=== PATIENT | female | born 1950 | race Caucasian/White ===

== ENCOUNTER 2017-02-06 19:57 | Emergency (ER) | payer MEDICARE, OTHER ==
[~2017-02-06] VITALS: Ht 165.1 cm; Wt 77.5 kg
[~2017-02-06 19:57] MED LIST: ALBU1.25 NEB; ALBU8.5H5 INH; ALBU8.5H8 INH; AMIT100T PO; AMIT10TA PO; BENZ-17 PO; BISA10SU2 PR; DICY10CA53 PO; DICY20TA3 PO; DOCU100C33 PO; DULO60CA7 PO; ESOM20CA PO; ESOM40CA PO; ESTR0.6246 PO; ESTR30CR VG; FENO48TA5 PO; FENT1PAT76 TP; FLUT1DIS IH; FURO20TA3 PO; FURO80TA3 PO; GABA-827 PO; GABA100C PO; HYDR-3241 PO; HYDR-3245 PO; LACT10SO28 PO; LEVO500T47 PO; LIDO5CRE19 SC; LIDO5JEL9 MM; LIPA1CAP4 PO; LORA2TAB PO; MECL12.52 PO; MELA5TAB19 PO; METF500T4 PO; METH4TAB6 PO; METH750T2 PO; METO-99 PO; METO25TA91 PO; METO50TA82 PO; ONDA8TAB16 SL; OXYGEN INH; PANT40TA5 PO; POLY119P19 PO; POLY17PO5 PO; POTA10CA PO; POTA10TA5 PO; POTA10TA6 PO; POTA15TA9 PO; SIME125C PO; SIME180C44 PO; TIZA4TAB PO; TRAZ100T15 PO; TRAZ50TA18 PO; TRIA15OI10 TD; [UNRECOGNIZED DRUG - CODE] PO
[2017-02-06] MEDS ORDERED: SODIUM CHLORIDE 0.9% 1,000ML IVBOLUS ONE (20:30)
[2017-02-06] MEDS ORDERED: SODIUM CHLORIDE FLUSH 10ML SYR IVF ONE (20:30)
[2017-02-06 20:37] LABS: BASOPHILS # (AUTO) 0.02 x10^3/uL (0-0.1); BASOPHILS % (AUTO) 0 % (0-1); EOSINOPHILS # (AUTO) 0.21 x10^3/uL (0-0.4); EOSINOPHILS % (AUTO) 3 % (1-7); LYMPHOCYTES # (AUTO) 2.14 x10^3/uL (1-3.4); LYMPHOCYTES % (AUTO) 32 % (22-44); MD NO; MEAN CORPUSCULAR HEMOGLOBIN 27.7 pg (27.0-34.8); MEAN CORPUSCULAR HGB CONC 32.5 g/dL (32.4-35.8); MEAN CORPUSCULAR VOLUME 85.1 fL (80-100); MEAN PLATELET VOLUME 7.5 fL (7.4-10.4); MONOCYTES # (AUTO) 0.39 x10^3/uL (0.2-0.8); MONOCYTES % (AUTO) 6 % (2-9); NEUTROPHILS # (AUTO) 3.88 x10^3/uL (1.8-6.8); NEUTROPHILS % (AUTO) 59 % (42-75); PLATELET COUNT 322 x10^3/uL (130-400); RED BLOOD COUNT 4.76 x10^6/uL (3.82-5.3); RED CELL DISTRIBUTION WIDTH 14.2 % (9.6-15.2)
[2017-02-06 20:50] LABS: ALANINE AMINOTRANSFERASE 24 U/L (12-78); ALBUMIN 4.2 g/dL (3.4-5.0); ANION GAP 7 mmol/L (5-15); CALCIUM 9.4 mg/dL (8.5-10.1); CHLORIDE 108 mmol/L (98-107); CREATININE 0.84 mg/dL (0.55-1.02)
[2017-02-06 20:52] LABS: ALKALINE PHOSPHATASE 111 U/L (45-117); BILIRUBIN,TOTAL 0.2 mg/dL (0.2-1.0); TOTAL PROTEIN 7.9 g/dL (6.4-8.2)
[2017-02-06] MEDS ORDERED: GABA-827 PO (23:02)
[2017-02-06] MEDS ORDERED: ONDANSETRON ODT 4 MG PO ONE (23:30)
[2017-02-06] MEDS ORDERED: HYDROmorphone 2 MG/ML, 1ML IM ONE (23:30)
[2017-02-06] MEDS ORDERED: HYDROmorphone 2 MG/ML, 1ML ONE (23:38)
[2017-02-06] MEDS ORDERED: ONDANSETRON ODT 4 MG ONE (23:39)
[2017-02-07 01:00] VITALS: BP 141/76
[2017-02-07 01:43] LABS: MICROSCOPIC INDICATED
[2017-02-07 01:44] LABS: CULTURE INDICATED? NO
== END 2017-02-07 02:42 | disposition home or self-care (01) ==
LOC: ED 23:37
DX: E86.0 Dehydration (principal); R19.7 Diarrhea, unspecified; R11.2 Nausea with vomiting, unspecified; I10 Essential (primary) hypertension; Z86.73 Personal history of transient ischemic attack (TIA), and cerebral infarction without residual deficits; E11.22 Type 2 diabetes mellitus with diabetic chronic kidney disease; I12.9 Hypertensive chronic kidney disease with stage 1 through stage 4 chronic kidney disease, or unspecified chronic kidney disease; N18.9 Chronic kidney disease, unspecified; Z90.49 Acquired absence of other specified parts of digestive tract; Z88.1 Allergy status to other antibiotic agents; Z88.8 Allergy status to other drugs, medicaments and biological substances; Z90.710 Acquired absence of both cervix and uterus
CPT/HCPCS: 36415; 74022; 74176; 80053; 81001; 83690; 85025; 96372; 99285; J1170; Q0162

== ENCOUNTER 2017-10-25 04:08 | Inpatient (IN) | payer MEDICARE, OTHER ==
[~2017-10-25] VITALS: Ht 162.6 cm; Wt 83.2 kg
[~2017-10-25 04:08] MED LIST changes: +KETO10TA PO; +LIDO5CRE6 TP; +METF500T17 PO; -METF500T4 PO; +TRAZ-136 PO; +TRAZ-137 PO; -TRAZ100T15 PO; -TRAZ50TA18 PO
[2017-10-25 05:19] LABS: BASOPHILS # (AUTO) 0.02 x10^3/uL (0-0.1); BASOPHILS % (AUTO) 0 % (0-1); EOSINOPHILS # (AUTO) 0.05 x10^3/uL (0-0.4); EOSINOPHILS % (AUTO) 1 % (1-7); LYMPHOCYTES # (AUTO) 1.19 x10^3/uL (1-3.4); LYMPHOCYTES % (AUTO) 15 % (22-44); MD NO; MEAN CORPUSCULAR HGB CONC 33.6 g/dL (32.4-35.8); MEAN CORPUSCULAR VOLUME 83.3 fL (80-100); MEAN PLATELET VOLUME 7.8 fL (7.4-10.4); MONOCYTES # (AUTO) 0.39 x10^3/uL (0.2-0.8); MONOCYTES % (AUTO) 5 % (2-9); NEUTROPHILS # (AUTO) 6.06 x10^3/uL (1.8-6.8); NEUTROPHILS % (AUTO) 79 % (42-75); PLATELET COUNT 310 x10^3/uL (130-400); RED BLOOD COUNT 4.72 x10^6/uL (3.82-5.3); RED CELL DISTRIBUTION WIDTH 14.5 % (9.6-15.2)
[2017-10-25] MEDS ORDERED: PROCHLORPERAZINE 5 MG/ML, 2ML ONE (05:22)
[2017-10-25] MEDS ORDERED: MORPHINE SULFATE 4 MG/ML, 1ML ONE (05:23)
[2017-10-25 05:27] LABS: INTERNATIONAL NORMALIZED RATIO 0.99 (0.93-1.1); PROTHROMBIN TIME 10.3 Seconds (9.6-11.5)
[2017-10-25] MEDS ORDERED: SODIUM CHLORIDE FLUSH 10ML SYR IVF ONE (05:30)
[2017-10-25] MEDS ORDERED: PROCHLORPERAZINE 5 MG/ML, 2ML IVPush ONE (05:30)
[2017-10-25] MEDS ORDERED: MORPHINE SULFATE 4 MG/ML, 1ML IVPush PRN (05:30)
[2017-10-25 05:31] LABS: ALBUMIN 4.2 g/dL (3.4-5.0); ANION GAP 10 mmol/L (5-15); CALCIUM 9.4 mg/dL (8.5-10.1); CHLORIDE 103 mmol/L (98-107)
[2017-10-25 05:36] LABS: ALANINE AMINOTRANSFERASE 22 U/L (12-78); ALKALINE PHOSPHATASE 105 U/L (45-117); BILIRUBIN,TOTAL 0.4 mg/dL (0.2-1.0); CREATININE 1.09 mg/dL (0.55-1.02); TOTAL PROTEIN 7.8 g/dL (6.4-8.2)
[2017-10-25] MEDS ORDERED: POLY2500 PO (06:49)
[2017-10-25] MEDS ORDERED: ALBU8.5H8 INH (06:49)
[2017-10-25] MEDS ORDERED: NALO4SPR NAS (06:49)
[2017-10-25] MEDS ORDERED: BISA10SU65 PR (06:49)
[2017-10-25] MEDS ORDERED: LIDOCAINE GEL 2%, 5ML TP ONE (08:00)
[2017-10-25] MEDS ORDERED: DIAZEPAM 5 MG/ML, 2ML IV ONE (08:00)
[2017-10-25] MEDS ORDERED: LIDOCAINE JELLY 2%, 30GM TP ONE (08:30)
[2017-10-25 10:09] VITALS: BP 158/99
[2017-10-25] MEDS ORDERED: ACETAMINOPHEN 325 MG TABLET PO PRN (11:30)
[2017-10-25] MEDS ORDERED: ONDANSETRON 2MG/ML, 2ML IVPush PRN (11:30)
[2017-10-25] MEDS ORDERED: ENALAPRILAT 1.25 MG/ML, 2ML IVPush PRN (11:30)
[2017-10-25] MEDS ORDERED: TEMAZEPAM 15 MG CAPSULE PO PRN (11:30)
[2017-10-25] MEDS ORDERED: PROMETHAZINE 25 MG/ML, 1ML IM PRN (11:30)
[2017-10-25] MEDS ORDERED: LABETALOL 5MG/ML, 20ML IVPush PRN (11:30)
[2017-10-25] MEDS ORDERED: ALBUTEROL SULFATE 2.5 MG/3 ML NEB PRN (11:30)
[2017-10-25] MEDS: PANTOPRAZOLE 40 MG IV IVPush SCH (11:57)
[2017-10-25] MEDS: LACTATED RINGERS 1,000 ML IV SCH ×2 (11:57→23:31)
[2017-10-25] MEDS: KETOROLAC 30 MG/1 ML IM PRN ×2 (12:13→19:06)
[2017-10-25 12:30] LABS: HEMOGLOBIN A1C 5.8 % (4.2-6.3)
[2017-10-25 13:45] LABS: MICROSCOPIC INDICATED
[2017-10-25 13:49] LABS: CULTURE INDICATED? YES
[2017-10-25 14:34] VITALS: BP 125/71
[2017-10-25] MEDS: TIZANIDINE 4MG TABLET PO SCH ×2 (16:00→23:29)
[2017-10-25] MEDS: GABAPENTIN 400 MG CAPSULE PO SCH ×2 (16:00→23:29)
[2017-10-25] MEDS: INSULIN LISPRO 100 UNITS/ML, PEN SQ-INSULIN SCH ×2 (16:00→21:24)
[2017-10-25 19:31] VITALS: BP 137/72
[2017-10-25] MEDS: BISACODYL 10 MG SUPP PR SCH (22:02)
[2017-10-25] MEDS: TRAZODONE 50MG TABLET PO SCH (23:28)
[2017-10-25] MEDS: METOPROLOL TARTRATE 100 MG TABLET PO SCH (23:28)
[2017-10-25] MEDS: AMITRIPTYLINE 50 MG TABLET PO SCH (23:44)
[2017-10-25 23:46] LABS: CLOSTRIDIUM DIFFICILE ANTIGEN NEGATIVE; CLOSTRIDIUM DIFFICILE TOXIN NEGATIVE (Negative)
[2017-10-26 01:18] VITALS: BP 91/57
[2017-10-26] MEDS: INSULIN LISPRO 100 UNITS/ML, PEN SQ-INSULIN SCH ×4 (03:14→21:00)
[2017-10-26 05:31] LABS: BASOPHILS # (AUTO) 0.02 x10^3/uL (0-0.1); BASOPHILS % (AUTO) 0 % (0-1); CHLORIDE 111 mmol/L (98-107); EOSINOPHILS # (AUTO) 0.11 x10^3/uL (0-0.4); EOSINOPHILS % (AUTO) 2 % (1-7); LYMPHOCYTES # (AUTO) 1.06 x10^3/uL (1-3.4); LYMPHOCYTES % (AUTO) 18 % (22-44); MD NO; MEAN CORPUSCULAR HEMOGLOBIN 27.1 pg (27.0-34.8); MEAN CORPUSCULAR HGB CONC 32.5 g/dL (32.4-35.8); MEAN CORPUSCULAR VOLUME 83.4 fL (80-100); MEAN PLATELET VOLUME 7.9 fL (7.4-10.4); MONOCYTES % (AUTO) 12 % (2-9); NEUTROPHILS # (AUTO) 4.01 x10^3/uL (1.8-6.8); NEUTROPHILS % (AUTO) 68 % (42-75); PLATELET COUNT 228 x10^3/uL (130-400); RED BLOOD COUNT 3.88 x10^6/uL (3.82-5.3); RED CELL DISTRIBUTION WIDTH 14.6 % (9.6-15.2)
[2017-10-26 05:50] LABS: ALANINE AMINOTRANSFERASE 15 U/L (12-78); ALKALINE PHOSPHATASE 92 U/L (45-117); ANION GAP 4 mmol/L (5-15); BILIRUBIN,TOTAL 0.7 mg/dL (0.2-1.0); CALCIUM 8.4 mg/dL (8.5-10.1); CREATININE 0.86 mg/dL (0.55-1.02); TOTAL PROTEIN 5.9 g/dL (6.4-8.2)
[2017-10-26] MEDS: PANTOPRAZOLE 40 MG IV IVPush SCH (08:40)
[2017-10-26 08:44] VITALS: BP 125/81
[2017-10-26] MEDS: METOPROLOL TARTRATE 100 MG TABLET PO SCH ×2 (09:17→22:29)
[2017-10-26] MEDS: DULOXETINE 30 MG CAPSULE.DR PO SCH (09:17)
[2017-10-26] MEDS: TIZANIDINE 4MG TABLET PO SCH ×3 (09:17→22:28)
[2017-10-26] MEDS: GABAPENTIN 400 MG CAPSULE PO SCH ×3 (09:17→22:29)
[2017-10-26] MEDS: ONDANSETRON ODT 4 MG PO PRN ×2 (09:22→16:36)
[2017-10-26] MEDS: KETOROLAC 30 MG/1 ML IM PRN ×2 (09:45→22:28)
[2017-10-26] MEDS: LACTATED RINGERS 1,000 ML IV SCH ×2 (09:48→21:31)
[2017-10-26 14:06] VITALS: BP 135/80
[2017-10-26] MEDS: morphine SULFATE 10 MG/ML, 1ML IVPush PRN (16:36)
[2017-10-26 20:00] VITALS: BP 108/75
[2017-10-26] MEDS: BISACODYL 10 MG SUPP PR SCH (21:00)
[2017-10-26] MEDS: LORazepam 2 MG/ML, 1ML IVPush PRN (21:31)
[2017-10-26] MEDS: AMITRIPTYLINE 50 MG TABLET PO SCH (22:28)
[2017-10-26] MEDS: TRAZODONE 50MG TABLET PO SCH (22:29)
[2017-10-27] MEDS: INSULIN LISPRO 100 UNITS/ML, PEN SQ-INSULIN SCH ×4 (03:00→21:00)
[2017-10-27 03:55] VITALS: BP 114/72
[2017-10-27 05:15] LABS: BASOPHILS # (AUTO) 0.02 x10^3/uL (0-0.1); BASOPHILS % (AUTO) 0 % (0-1); EOSINOPHILS # (AUTO) 0.13 x10^3/uL (0-0.4); EOSINOPHILS % (AUTO) 2 % (1-7); LYMPHOCYTES # (AUTO) 1.39 x10^3/uL (1-3.4); LYMPHOCYTES % (AUTO) 25 % (22-44); MD NO; MEAN CORPUSCULAR HEMOGLOBIN 27.4 pg (27.0-34.8); MEAN CORPUSCULAR HGB CONC 32.7 g/dL (32.4-35.8); MEAN CORPUSCULAR VOLUME 83.7 fL (80-100); MEAN PLATELET VOLUME 7.8 fL (7.4-10.4); MONOCYTES # (AUTO) 0.45 x10^3/uL (0.2-0.8); MONOCYTES % (AUTO) 8 % (2-9); NEUTROPHILS # (AUTO) 3.54 x10^3/uL (1.8-6.8); NEUTROPHILS % (AUTO) 64 % (42-75); PLATELET COUNT 201 x10^3/uL (130-400); RED BLOOD COUNT 3.73 x10^6/uL (3.82-5.3); RED CELL DISTRIBUTION WIDTH 14.3 % (9.6-15.2)
[2017-10-27 05:23] LABS: ALBUMIN 2.7 g/dL (3.4-5.0); ANION GAP 1 mmol/L (5-15); CALCIUM 8.4 mg/dL (8.5-10.1); CHLORIDE 113 mmol/L (98-107)
[2017-10-27 05:27] LABS: ALANINE AMINOTRANSFERASE 13 U/L (12-78); ALKALINE PHOSPHATASE 80 U/L (45-117); BILIRUBIN,TOTAL 0.3 mg/dL (0.2-1.0); TOTAL PROTEIN 5.6 g/dL (6.4-8.2)
[2017-10-27 06:51] VITALS: BP 104/63
[2017-10-27] MEDS: KETOROLAC 30 MG/1 ML IM PRN (06:55)
[2017-10-27] MEDS: ONDANSETRON ODT 4 MG PO PRN ×3 (06:55→20:36)
[2017-10-27] MEDS: PANTOPRAZOLE 40 MG IV IVPush SCH (07:30)
[2017-10-27] MEDS: LACTATED RINGERS 1,000 ML IV SCH ×2 (07:49→20:00)
[2017-10-27] MEDS: morphine SULFATE 10 MG/ML, 1ML IVPush PRN (08:55)
[2017-10-27] MEDS: DULOXETINE 30 MG CAPSULE.DR PO SCH (08:56)
[2017-10-27] MEDS: TIZANIDINE 4MG TABLET PO SCH ×3 (08:56→23:09)
[2017-10-27] MEDS: METOPROLOL TARTRATE 100 MG TABLET PO SCH ×2 (08:56→21:00)
[2017-10-27] MEDS: GABAPENTIN 400 MG CAPSULE PO SCH ×3 (08:56→23:09)
[2017-10-27] MEDS ORDERED: CEFTRIAXONE 1,000 MG IM SCH (09:30)
[2017-10-27] MEDS: CEFTRIAXONE 1,000 MG in SODIUM CHLORIDE 0.9% 50 ML IV SCH (10:27)
[2017-10-27] MEDS: ENOXAPARIN 40 MG/0.4 ML SQ SCH (10:28)
[2017-10-27] MEDS ORDERED: VANCOMYCIN PER PHARMACY MC PRN (11:00)
[2017-10-27] MEDS: LACTOBACILLUS CHEW TABLET PO SCH ×3 (11:29→23:09)
[2017-10-27] MEDS ORDERED: PHARMACOKINETIC MONITORING MC PRN (11:30)
[2017-10-27] MEDS ORDERED: PHARMACOKINETIC CONSULTATION MC ONE (11:30)
[2017-10-27] MEDS ORDERED: VANCOMYCIN 1,700 MG in SODIUM CHLORIDE 0.9% 250 ML IV SCH (11:30)
[2017-10-27] MEDS: LORazepam 2 MG/ML, 1ML IVPush PRN (11:58)
[2017-10-27] MEDS: KETOROLAC 30 MG/1 ML IVPush PRN ×2 (13:46→21:15)
[2017-10-27 14:18] VITALS: BP 110/62
[2017-10-27] MEDS: HYDROcodone/APAP 10/325 MG TABLET PO PRN ×2 (15:36→23:09)
[2017-10-27] MEDS: BISACODYL 10 MG SUPP PR SCH (21:00)
[2017-10-27 21:10] VITALS: BP 108/61
[2017-10-27] MEDS ORDERED: FENTANYL REMOVE PATCH NOTE XX SCH (22:00)
[2017-10-27] MEDS ORDERED: FENTANYL 50 MCG PATCH TD SCH (23:00)
[2017-10-27] MEDS: AMITRIPTYLINE 50 MG TABLET PO SCH (23:08)
[2017-10-27] MEDS: TRAZODONE 50MG TABLET PO SCH (23:09)
[2017-10-28] MEDS: INSULIN LISPRO 100 UNITS/ML, PEN SQ-INSULIN SCH ×4 (03:00→21:00)
[2017-10-28] MEDS: KETOROLAC 30 MG/1 ML IVPush PRN ×2 (04:56→12:28)
[2017-10-28 04:59] VITALS: BP 126/76
[2017-10-28] MEDS: LORazepam 2 MG/ML, 1ML IVPush PRN (05:53)
[2017-10-28] MEDS: LACTOBACILLUS CHEW TABLET PO SCH ×4 (05:57→23:08)
[2017-10-28 07:15] VITALS: BP 134/82
[2017-10-28] MEDS: ACETAMINOPHEN 325 MG TABLET PO SCH ×3 (08:00→23:08)
[2017-10-28] MEDS ORDERED: morphine SULFATE 10 MG/ML, 1ML IVPush PRN (08:00)
[2017-10-28] MEDS ORDERED: BISACODYL 10 MG SUPP PR PRN (08:00)
[2017-10-28] MEDS: TIZANIDINE 4MG TABLET PO SCH ×4 (10:07→23:08)
[2017-10-28] MEDS: HYDROcodone/APAP 10/325 MG TABLET PO PRN ×2 (10:07→17:21)
[2017-10-28] MEDS: CEFTRIAXONE 1,000 MG in SODIUM CHLORIDE 0.9% 50 ML IV SCH (10:07)
[2017-10-28] MEDS: ENOXAPARIN 40 MG/0.4 ML SQ SCH (10:08)
[2017-10-28] MEDS: GABAPENTIN 400 MG CAPSULE PO SCH ×3 (10:08→23:08)
[2017-10-28] MEDS: DULOXETINE 30 MG CAPSULE.DR PO SCH (10:08)
[2017-10-28] MEDS: METOPROLOL TARTRATE 100 MG TABLET PO SCH ×2 (10:08→21:00)
[2017-10-28] MEDS: ONDANSETRON ODT 4 MG PO PRN ×2 (13:09→17:21)
[2017-10-28 13:27] VITALS: BP 103/59
[2017-10-28 15:27] VITALS: BP 118/75
[2017-10-28] MEDS: VANCOMYCIN 1,700 MG in SODIUM CHLORIDE 0.9% 250 ML IV SCH (15:29)
[2017-10-28] MEDS: LORazepam 0.5MG TABLET PO PRN (17:21)
[2017-10-28] MEDS: LACTATED RINGERS 1,000 ML IV SCH (19:30)
[2017-10-28 19:32] VITALS: BP 133/65
[2017-10-28] MEDS: AMITRIPTYLINE 50 MG TABLET PO SCH (23:09)
[2017-10-28] MEDS: TRAZODONE 50MG TABLET PO SCH (23:09)
[2017-10-29 01:09] VITALS: BP 133/81
[2017-10-29] MEDS: KETOROLAC 30 MG/1 ML IVPush PRN ×4 (01:38→21:30)
[2017-10-29] MEDS: INSULIN LISPRO 100 UNITS/ML, PEN SQ-INSULIN SCH ×3 (03:00→22:06)
[2017-10-29] MEDS: LORazepam 0.5MG TABLET PO PRN ×2 (06:15→13:05)
[2017-10-29] MEDS: HYDROcodone/APAP 10/325 MG TABLET PO PRN ×3 (06:15→20:52)
[2017-10-29] MEDS: LACTOBACILLUS CHEW TABLET PO SCH ×4 (06:23→22:05)
[2017-10-29] MEDS: ACETAMINOPHEN 325 MG TABLET PO SCH ×3 (06:23→17:52)
[2017-10-29 07:20] VITALS: BP 132/85
[2017-10-29] MEDS: DULOXETINE 30 MG CAPSULE.DR PO SCH (07:57)
[2017-10-29] MEDS: METOPROLOL TARTRATE 100 MG TABLET PO SCH ×2 (07:57→21:00)
[2017-10-29] MEDS: GABAPENTIN 400 MG CAPSULE PO SCH ×3 (07:57→22:05)
[2017-10-29] MEDS: TIZANIDINE 4MG TABLET PO SCH ×3 (07:57→22:05)
[2017-10-29] MEDS: ENOXAPARIN 40 MG/0.4 ML SQ SCH (07:58)
[2017-10-29] MEDS: CEFTRIAXONE 1,000 MG in SODIUM CHLORIDE 0.9% 50 ML IV SCH (11:35)
[2017-10-29] MEDS: LACTATED RINGERS 1,000 ML IV SCH (11:35)
[2017-10-29 12:52] VITALS: BP 118/61
[2017-10-29] MEDS: VANCOMYCIN 1,700 MG in SODIUM CHLORIDE 0.9% 250 ML IV SCH (15:31)
[2017-10-29 19:47] VITALS: BP 139/90
[2017-10-29] MEDS ORDERED: POLYETHYLENE GLYCOL 17 GM PACKET PO ONE (21:30)
[2017-10-29] MEDS: TRAZODONE 50MG TABLET PO SCH (22:05)
[2017-10-29] MEDS: AMITRIPTYLINE 50 MG TABLET PO SCH (22:05)
[2017-10-30] MEDS: LORazepam 0.5MG TABLET PO PRN (00:01)
[2017-10-30] MEDS: ACETAMINOPHEN 325 MG TABLET PO SCH ×3 (00:01→12:00)
[2017-10-30 02:37] VITALS: BP 122/76
[2017-10-30] MEDS: LACTATED RINGERS 1,000 ML IV SCH (02:40)
[2017-10-30] MEDS: LACTOBACILLUS CHEW TABLET PO SCH ×3 (06:35→16:00)
[2017-10-30] MEDS: INSULIN LISPRO 100 UNITS/ML, PEN SQ-INSULIN SCH ×3 (07:00→16:00)
[2017-10-30 08:20] VITALS: BP 142/83
[2017-10-30] MEDS ORDERED: ACET325T14 PO (10:02)
[2017-10-30] MEDS ORDERED: ACID1TAB7 PO (10:02)
[2017-10-30] MEDS ORDERED: METO-99 PO (10:02)
[2017-10-30] MEDS ORDERED: BISACODYL 10 MG SUPP ONE (10:28)
[2017-10-30] MEDS: METOPROLOL TARTRATE 100 MG TABLET PO SCH (10:30)
[2017-10-30] MEDS: DULOXETINE 30 MG CAPSULE.DR PO SCH (10:30)
[2017-10-30] MEDS: GABAPENTIN 400 MG CAPSULE PO SCH ×2 (10:31→16:00)
[2017-10-30] MEDS: TIZANIDINE 4MG TABLET PO SCH ×2 (10:31→16:00)
[2017-10-30] MEDS: ENOXAPARIN 40 MG/0.4 ML SQ SCH (10:32)
[2017-10-30] MEDS: CEFTRIAXONE 1,000 MG in SODIUM CHLORIDE 0.9% 50 ML IV SCH (10:35)
[2017-10-30] MEDS: HYDROcodone/APAP 10/325 MG TABLET PO PRN (10:36)
[2017-10-30] MEDS: VANCOMYCIN 1,700 MG in SODIUM CHLORIDE 0.9% 250 ML IV SCH (12:48)
[2017-10-30] MEDS ORDERED: BISACODYL 10 MG SUPP PR ONE (21:00)
[2017-10-30] MEDS ORDERED: BISACODYL 10 MG SUPP PR SCH (21:00)
== END 2017-10-30 17:20 | disposition home or self-care (01) | DRG 438 ==
LOC: ED 04:54 → EDIP 07:42 → 4NOR 09:57
PROVIDERS: ADMIT Hospitalist; ATTEND Hospitalist
DX: K85.90 Acute pancreatitis without necrosis or infection, unspecified (principal); N17.0 Acute kidney failure with tubular necrosis; K56.50 Intestinal adhesions [bands], unspecified as to partial versus complete obstruction; N39.0 Urinary tract infection, site not specified; K86.1 Other chronic pancreatitis; I10 Essential (primary) hypertension; E11.42 Type 2 diabetes mellitus with diabetic polyneuropathy; E11.649 Type 2 diabetes mellitus with hypoglycemia without coma; F41.9 Anxiety disorder, unspecified; F51.04 Psychophysiologic insomnia; G47.30 Sleep apnea, unspecified; G89.4 Chronic pain syndrome; N20.0 Calculus of kidney; Z76.5 Malingerer [conscious simulation]; Z90.49 Acquired absence of other specified parts of digestive tract; Z88.8 Allergy status to other drugs, medicaments and biological substances; Z88.2 Allergy status to sulfonamides; Z90.6 Acquired absence of other parts of urinary tract; Z90.710 Acquired absence of both cervix and uterus; B96.89 Other specified bacterial agents as the cause of diseases classified elsewhere
CPT/HCPCS: 36415; 74018; 74176; 80053; 81001; 82962; 83036; 83690; 83735; 84100; 85025; 85610; 85730; 87077; 87086; 87147; 87186; 87324; 93005; 96374; 96375; 99285; G0378; J0696; J1650; J1885; J3360; J3370; Q0162; C9113; J0780; J2060; J2270; J7050; J7120

== ENCOUNTER 2017-11-02 02:56 | Emergency (ER) | payer MEDICARE, OTHER ==
[~2017-11-02] VITALS: Ht 165.1 cm; Wt 79.7 kg
[~2017-11-02 02:56] MED LIST changes: +ACET325T14 PO; +ACID1TAB7 PO; +BISA10SU65 PR; +NALO4SPR NAS; +POLY2500 PO
[2017-11-02] MEDS ORDERED: ONDANSETRON ODT 4 MG ONE (03:39)
[2017-11-02 03:53] LABS: BASOPHILS # (AUTO) 0.03 x10^3/uL (0-0.1); BASOPHILS % (AUTO) 1 % (0-1); EOSINOPHILS # (AUTO) 0.33 x10^3/uL (0-0.4); EOSINOPHILS % (AUTO) 5 % (1-7); LYMPHOCYTES # (AUTO) 1.82 x10^3/uL (1-3.4); LYMPHOCYTES % (AUTO) 28 % (22-44); MD NO; MEAN CORPUSCULAR HGB CONC 33.2 g/dL (32.4-35.8); MEAN CORPUSCULAR VOLUME 84.3 fL (80-100); MEAN PLATELET VOLUME 7.9 fL (7.4-10.4); MONOCYTES # (AUTO) 0.52 x10^3/uL (0.2-0.8); MONOCYTES % (AUTO) 8 % (2-9); NEUTROPHILS # (AUTO) 3.82 x10^3/uL (1.8-6.8); NEUTROPHILS % (AUTO) 59 % (42-75); PLATELET COUNT 227 x10^3/uL (130-400); RED BLOOD COUNT 3.66 x10^6/uL (3.82-5.3); RED CELL DISTRIBUTION WIDTH 14.8 % (9.6-15.2)
[2017-11-02] MEDS ORDERED: ONDANSETRON ODT 4 MG PO ONE (04:00)
[2017-11-02 04:05] LABS: ALANINE AMINOTRANSFERASE 19 U/L (12-78); ALBUMIN 3.4 g/dL (3.4-5.0); ANION GAP 9 mmol/L (5-15); CALCIUM 8.6 mg/dL (8.5-10.1); CHLORIDE 107 mmol/L (98-107); CREATININE 1.02 mg/dL (0.55-1.02)
[2017-11-02 04:07] LABS: ALKALINE PHOSPHATASE 88 U/L (45-117); BILIRUBIN,TOTAL 0.2 mg/dL (0.2-1.0); TOTAL PROTEIN 6.8 g/dL (6.4-8.2)
[2017-11-02 05:38] VITALS: BP 129/61
== END 2017-11-02 05:41 | disposition home or self-care (01) ==
LOC: ED 03:50
DX: R10.84 Generalized abdominal pain (principal); Z90.49 Acquired absence of other specified parts of digestive tract; E11.22 Type 2 diabetes mellitus with diabetic chronic kidney disease; I12.9 Hypertensive chronic kidney disease with stage 1 through stage 4 chronic kidney disease, or unspecified chronic kidney disease; N18.9 Chronic kidney disease, unspecified; Z86.73 Personal history of transient ischemic attack (TIA), and cerebral infarction without residual deficits
CPT/HCPCS: 36415; 74021; 80053; 83690; 85025; 99285; Q0162

== ENCOUNTER 2018-02-06 20:39 | Emergency (ER) | payer MEDICARE, OTHER ==
[~2018-02-06] VITALS: Ht 165.1 cm; Wt 78.2 kg
[~2018-02-06 20:39] MED LIST changes: -TRAZ-136 PO; +TRAZ50TA66 PO
--- NOTE | 2018-02-06 21:00 | NUR ---
PT IN GOWN IN [facility]; PT DENIES ANY NEEDS AT THIS TIME. ERP AT BEDSIDE. PT EDUCATED ON ER PROCESS AND POC AND VERBALIZES UNDERSTANDING. CALL LIGHT IS WITHIN REACH. LABS AND URINE COLLECTED AND SENT TO LAB.
[2018-02-06 21:20] LABS: BASOPHILS # (AUTO) 0.04 x10^3/uL (0-0.1); BASOPHILS % (AUTO) 1 % (0-1); EOSINOPHILS # (AUTO) 0.21 x10^3/uL (0-0.4); EOSINOPHILS % (AUTO) 3 % (1-7); LYMPHOCYTES % (AUTO) 19 % (22-44); MD NO; MEAN CORPUSCULAR HEMOGLOBIN 26.3 pg (27.0-34.8); MEAN CORPUSCULAR HGB CONC 32.4 g/dL (32.4-35.8); MEAN CORPUSCULAR VOLUME 81.1 fL (80-100); MEAN PLATELET VOLUME 7.8 fL (7.4-10.4); MONOCYTES # (AUTO) 0.45 x10^3/uL (0.2-0.8); MONOCYTES % (AUTO) 6 % (2-9); NEUTROPHILS # (AUTO) 5.68 x10^3/uL (1.8-6.8); NEUTROPHILS % (AUTO) 72 % (42-75); PLATELET COUNT 354 x10^3/uL (130-400); RED BLOOD COUNT 4.23 x10^6/uL (3.82-5.3); RED CELL DISTRIBUTION WIDTH 16.1 % (9.6-15.2)
[2018-02-06 21:28] LABS: ALANINE AMINOTRANSFERASE 15 U/L (12-78); ALBUMIN 3.5 g/dL (3.4-5.0); ANION GAP 3 mmol/L (5-15); CALCIUM 8.8 mg/dL (8.5-10.1); CHLORIDE 106 mmol/L (98-107); CREATININE 0.94 mg/dL (0.55-1.02)
[2018-02-06] MEDS ORDERED: ONDANSETRON ODT 4 MG PO ONE (21:30)
[2018-02-06 21:31] LABS: ALKALINE PHOSPHATASE 82 U/L (45-117); BILIRUBIN,TOTAL 0.3 mg/dL (0.2-1.0); TOTAL PROTEIN 6.7 g/dL (6.4-8.2)
[2018-02-06 21:34] LABS: CULTURE INDICATED? YES; MICROSCOPIC INDICATED
--- NOTE | 2018-02-06 21:58 | NUR ---
PT BACK FROM US.
--- NOTE | 2018-02-07 00:15 | NUR ---
PT D/C WITH D/C SUMMARY AND SCRIPTS. ALL QUESTIONS ANSWERED. PT AMBULATED TO REGISTRATION DESK WITH STEADY GAIT. PT DENIES ANY OTHER NEEDS PERTAINING TO THIS VISIT. PT VSS AT D/C.
[2018-02-07 00:16] VITALS: BP 151/53
== END 2018-02-07 00:19 | disposition home or self-care (01) ==
LOC: ED 23:08
DX: N39.0 Urinary tract infection, site not specified (principal); M54.5 Low back pain; K21.9 Gastro-esophageal reflux disease without esophagitis; E11.22 Type 2 diabetes mellitus with diabetic chronic kidney disease; I12.9 Hypertensive chronic kidney disease with stage 1 through stage 4 chronic kidney disease, or unspecified chronic kidney disease; N18.9 Chronic kidney disease, unspecified; Z86.73 Personal history of transient ischemic attack (TIA), and cerebral infarction without residual deficits; Z86.14 Personal history of Methicillin resistant Staphylococcus aureus infection; Z90.49 Acquired absence of other specified parts of digestive tract; Z88.1 Allergy status to other antibiotic agents
CPT/HCPCS: 36415; 76770; 80053; 81001; 85025; 87077; 87086; 87186; 99284

== ENCOUNTER 2018-07-14 02:43 | Emergency (ER) | payer MEDICARE, OTHER ==
[~2018-07-14 02:43] MED LIST changes: -LIDO5CRE19 SC; +LIDO5CRE26 SC
[2018-07-14 03:34] LABS: CULTURE INDICATED? YES; MICROSCOPIC INDICATED
[2018-07-14 03:52] LABS: BASOPHILS # (AUTO) 0.03 x10^3/uL (0-0.1); BASOPHILS % (AUTO) 0 % (0-1); EOSINOPHILS % (AUTO) 1 % (1-7); LYMPHOCYTES # (AUTO) 1.37 x10^3/uL (1-3.4); LYMPHOCYTES % (AUTO) 19 % (22-44); MD NO; MEAN CORPUSCULAR HEMOGLOBIN 25.7 pg (27.0-34.8); MEAN CORPUSCULAR HGB CONC 31.6 g/dL (32.4-35.8); MEAN CORPUSCULAR VOLUME 81.3 fL (80-100); MEAN PLATELET VOLUME 7.7 fL (7.4-10.4); MONOCYTES # (AUTO) 0.36 x10^3/uL (0.2-0.8); MONOCYTES % (AUTO) 5 % (2-9); NEUTROPHILS # (AUTO) 5.36 x10^3/uL (1.8-6.8); NEUTROPHILS % (AUTO) 74 % (42-75); PLATELET COUNT 330 x10^3/uL (130-400); RED BLOOD COUNT 3.94 x10^6/uL (3.82-5.3); RED CELL DISTRIBUTION WIDTH 17.8 % (9.6-15.2)
[2018-07-14 03:53] LABS: ALANINE AMINOTRANSFERASE 22 U/L (12-78); ALBUMIN 3.5 g/dL (3.4-5.0); ANION GAP 8 mmol/L (5-15); CALCIUM 8.4 mg/dL (8.5-10.1); CHLORIDE 114 mmol/L (98-107); CREATININE 1.09 mg/dL (0.55-1.02)
[2018-07-14 03:56] LABS: ALKALINE PHOSPHATASE 107 U/L (45-117); BILIRUBIN,TOTAL 0.1 mg/dL (0.2-1.0); TOTAL PROTEIN 7.1 g/dL (6.4-8.2)
[2018-07-14] MEDS ORDERED: ONDANSETRON 2MG/ML, 2ML ONE (04:24)
--- NOTE | 2018-07-14 04:27 | NUR ---
PT MEDICATED FOR NAUSEA
--- NOTE | 2018-07-14 04:48 | NUR ---
PT BACK FROM CT. PT MEDICATED PER MAR FOR NAUSEA.
[2018-07-14] MEDS ORDERED: ONDANSETRON 2MG/ML, 2ML IVPush ONE (05:00)
--- NOTE | 2018-07-14 05:05 | NUR ---
PT ASLEEP IN [facility] AT THIS TIME;
[2018-07-14] MEDS ORDERED: OMNIPAQUE 350 MG/ML, 100ML BOTTLE ONE (05:19)
[2018-07-14 06:11] VITALS: BP 144/72
--- NOTE | 2018-07-14 06:11 | NUR ---
PT D/C WITH D/C SUMMARY AND SCRIPTS. ALL QUESTIONS ANSWERED. PT AMBULATES TO REGISTRATION DESK WITH STEADY GAIT FOR D/C HOME. PT DENIES ANY OTHER NEEDS PERTAINING TO THIS VISIT. PT VSS AND UPDATED IN EMR PRIOR TO D/C
[2018-07-15] MEDS ORDERED: BUSBAR PO (04:14)
[2018-07-15] MEDS ORDERED: CIPR500T3 PO (11:49)
[2018-07-15] MEDS ORDERED: FURO20TA3 PO (11:49)
[2018-07-15] MEDS ORDERED: BUSP15TA PO (11:49)
[2018-07-15] MEDS ORDERED: ATOR20TA37 PO (11:49)
[2018-07-15] MEDS ORDERED: POTA10CA PO (11:49)
[2018-07-15] MEDS ORDERED: LISI10TA2 PO (11:49)
[2018-07-17] MEDS ORDERED: LEVO25TA2 PO (12:27)
== END 2018-07-14 06:30 | disposition home or self-care (01) ==
LOC: ED 06:14
DX: R10.84 Generalized abdominal pain (principal); K59.00 Constipation, unspecified; I12.9 Hypertensive chronic kidney disease with stage 1 through stage 4 chronic kidney disease, or unspecified chronic kidney disease; N18.9 Chronic kidney disease, unspecified; K21.9 Gastro-esophageal reflux disease without esophagitis; E11.22 Type 2 diabetes mellitus with diabetic chronic kidney disease; Z86.73 Personal history of transient ischemic attack (TIA), and cerebral infarction without residual deficits; Z90.89 Acquired absence of other organs; Z90.49 Acquired absence of other specified parts of digestive tract; Z90.710 Acquired absence of both cervix and uterus
CPT/HCPCS: 36415; 74177; 80053; 81001; 83605; 85025; 87077; 87086; 96374; 99284; J2405; Q9967; 87186

== ENCOUNTER → 2019-04-16 | Outpatient (CLI) | payer MEDICARE, OTHER, MEDICAID ==
[~2019-04-16] MED LIST changes: +ATOR20TA37 PO; -BISA10SU2 PR; +BISA10SU4 PR; +BUSBAR PO; +BUSP15TA PO; +CEFT2PIG IV; +CEPH-375 PO; +CIPR500T3 PO; +FENO48TA10 PO; -FENO48TA5 PO; +FURO40TA6 PO; +LACT1TAB13 PO; +LEVO25TA2 PO; +LEVO25TA4 PO; +LISI10TA2 PO; -MECL12.52 PO; +MECL12.581 PO; +MELA5TAB14 PO; -MELA5TAB19 PO; +MEMA5TAB42 PO; +METO100T7 PO; +POTA20PA25 PO; -TIZA4TAB PO; +TIZA4TAB2 PO; -TRAZ-137 PO; +TRAZ-175 PO
[2019-04-16 15:55] LABS: BASOPHILS # (AUTO) 0.04 x10^3/uL (0-0.1); BASOPHILS % (AUTO) 0 % (0-1); EOSINOPHILS # (AUTO) 0.18 x10^3/uL (0-0.4); EOSINOPHILS % (AUTO) 2 % (1-7); LYMPHOCYTES # (AUTO) 1.32 x10^3/uL (1-3.4); LYMPHOCYTES % (AUTO) 15 % (22-44); MD NO; MEAN CORPUSCULAR HEMOGLOBIN 23.2 pg (27.0-34.8); MEAN CORPUSCULAR HGB CONC 31.2 g/dL (32.4-35.8); MEAN CORPUSCULAR VOLUME 74.4 fL (80-100); MEAN PLATELET VOLUME 8.4 fL (7.4-10.4); MONOCYTES # (AUTO) 0.66 x10^3/uL (0.2-0.8); MONOCYTES % (AUTO) 7 % (2-9); NEUTROPHILS # (AUTO) 6.72 x10^3/uL (1.8-6.8); NEUTROPHILS % (AUTO) 75 % (42-75); PLATELET COUNT 330 x10^3/uL (130-400); RED BLOOD COUNT 4.15 x10^6/uL (3.82-5.3); RED CELL DISTRIBUTION WIDTH 17.8 % (9.6-15.2)
[2019-04-16 16:06] LABS: ALANINE AMINOTRANSFERASE 20 U/L (12-78); ALBUMIN 3.1 g/dL (3.4-5.0); ANION GAP 3 mmol/L (5-15); CALCIUM 8.8 mg/dL (8.5-10.1); CHLORIDE 110 mmol/L (98-107); CREATININE 0.76 mg/dL (0.55-1.02)
[2019-04-16 16:09] LABS: ALKALINE PHOSPHATASE 132 U/L (45-117); BILIRUBIN,TOTAL 0.2 mg/dL (0.2-1.0); TOTAL PROTEIN 6.6 g/dL (6.4-8.2)
[2019-04-16 17:30] LABS: MICROSCOPIC AUTO
== END | disposition home or self-care (01) ==
LOC: STAR 14:42
PROVIDERS: ATTEND Urology
DX: Z01.818 Encounter for other preprocedural examination (principal); N20.0 Calculus of kidney
CPT/HCPCS: 36415; 80053; 81001; 85025; 87077; 87086; 87186; 93005

== ENCOUNTER 2019-05-29 17:19 | Inpatient (IN) | payer MEDICARE, OTHER, MEDICAID ==
[~2019-05-29] VITALS: Ht 165.1 cm; Wt 87.2 kg
[2019-05-29] MEDS ORDERED: FUROSEMIDE 40 MG/4 ML IV ONE (17:36)
[2019-05-29] MEDS ORDERED: TIZA2TAB2 PO (17:38)
[2019-05-29] MEDS ORDERED: FUROSEMIDE 40 MG/4 ML ONE (17:42)
--- NOTE | 2019-05-29 17:48 | NUR ---
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 MEDS ADMIN PER APR. LAB AT BEDSIDE. PT CONNECTED TO MONITORING. PT RESTING COMFORTABLY ON GURNEY. SADAF.
--- NOTE | 2019-05-29 17:49 | NUR ---
this tech obtained vitals and EKG
[2019-05-29] MEDS ORDERED: SODIUM CHLORIDE FLUSH 10ML SYR IVF ONE (18:00)
[2019-05-29 18:03] LABS: BASOPHILS # (AUTO) 0.03 x10^3/uL (0-0.1); BASOPHILS % (AUTO) 1 % (0-1); EOSINOPHILS # (AUTO) 0.17 x10^3/uL (0-0.4); EOSINOPHILS % (AUTO) 3 % (1-7); LYMPHOCYTES # (AUTO) 1.27 x10^3/uL (1-3.4); LYMPHOCYTES % (AUTO) 20 % (22-44); MD NO; MEAN CORPUSCULAR HEMOGLOBIN 23.3 pg (27.0-34.8); MEAN CORPUSCULAR HGB CONC 31.5 g/dL (32.4-35.8); MEAN PLATELET VOLUME 8.1 fL (7.4-10.4); MONOCYTES # (AUTO) 0.51 x10^3/uL (0.2-0.8); MONOCYTES % (AUTO) 8 % (2-9); NEUTROPHILS # (AUTO) 4.31 x10^3/uL (1.8-6.8); NEUTROPHILS % (AUTO) 69 % (42-75); PLATELET COUNT 283 x10^3/uL (130-400); RED BLOOD COUNT 4.03 x10^6/uL (3.82-5.3); RED CELL DISTRIBUTION WIDTH 18.8 % (9.6-15.2)
[2019-05-29 18:16] LABS: ALANINE AMINOTRANSFERASE 24 U/L (12-78); ALBUMIN 3.5 g/dL (3.4-5.0); ANION GAP 4 mmol/L (5-15); CALCIUM 8.6 mg/dL (8.5-10.1); CHLORIDE 110 mmol/L (98-107)
[2019-05-29 18:20] LABS: ALKALINE PHOSPHATASE 121 U/L (45-117); BILIRUBIN,TOTAL 0.2 mg/dL (0.2-1.0); TOTAL PROTEIN 6.7 g/dL (6.4-8.2); TROPONIN I < 0.015 ng/mL (0.000-0.045)
[2019-05-29 18:49] LABS: MICROSCOPIC NOT IND
[2019-05-29 18:52] LABS: CULTURE INDICATED? NO
--- NOTE | 2019-05-29 19:26 | NUR ---
HOPSITALIST AT BEDSIDE. PT RESTING COMFORTABLY ON GURNEY. PT DRAINED UROSTOMY INTO URINAL, URINE CLEAR YELLOW. AURELIANON.
[2019-05-29] MEDS ORDERED: MECLIZINE 12.5 MG TABLET PO PRN (20:00)
[2019-05-29] MEDS: HYDROcodone/APAP 10/325 MG TABLET PO PRN (20:23)
[2019-05-29] MEDS ORDERED: HYDROcodone/APAP 10/325 MG TABLET ONE (20:25)
--- NOTE | 2019-05-29 20:41 | NUR ---
REPORT GIVEN TO EDWIN MERRILL.
[2019-05-29] MEDS: ATORVASTATIN 20 MG TABLET PO SCH (21:46)
[2019-05-29] MEDS: BUSPIRONE 5 MG TABLET PO SCH (21:47)
[2019-05-29] MEDS: GABAPENTIN 400 MG CAPSULE PO SCH (21:47)
[2019-05-29] MEDS: AMITRIPTYLINE 50 MG TABLET PO SCH (21:48)
[2019-05-29] MEDS: TIZANIDINE 2MG TABLET PO SCH (21:48)
[2019-05-29] MEDS: MEMANTINE 5MG TABLET PO SCH (21:48)
[2019-05-29] MEDS: METOPROLOL TARTRATE 100 MG TAB PO SCH (21:48)
[2019-05-29] MEDS: FENTANYL 25 MCG PATCH TD SCH (22:03)
[2019-05-29] MEDS: KETOROLAC 10MG TABLET PO SCH (22:04)
[2019-05-29 22:28] VITALS: BP 127/75
[2019-05-30 00:57] VITALS: BP 93/59
[2019-05-30] MEDS: KETOROLAC 10MG TABLET PO SCH ×2 (02:37→06:23)
[2019-05-30 05:38] LABS: ANION GAP 4 mmol/L (5-15); CALCIUM 8.3 mg/dL (8.5-10.1); CHLORIDE 107 mmol/L (98-107); CREATININE 1.11 mg/dL (0.55-1.02)
[2019-05-30 05:40] LABS: BASOPHILS # (AUTO) 0.03 x10^3/uL (0-0.1); BASOPHILS % (AUTO) 1 % (0-1); EOSINOPHILS # (AUTO) 0.23 x10^3/uL (0-0.4); EOSINOPHILS % (AUTO) 4 % (1-7); LYMPHOCYTES # (AUTO) 1.56 x10^3/uL (1-3.4); LYMPHOCYTES % (AUTO) 26 % (22-44); MD NO; MEAN CORPUSCULAR HEMOGLOBIN 23.5 pg (27.0-34.8); MEAN CORPUSCULAR HGB CONC 31.8 g/dL (32.4-35.8); MEAN PLATELET VOLUME 8.5 fL (7.4-10.4); MONOCYTES # (AUTO) 0.56 x10^3/uL (0.2-0.8); MONOCYTES % (AUTO) 9 % (2-9); NEUTROPHILS # (AUTO) 3.53 x10^3/uL (1.8-6.8); NEUTROPHILS % (AUTO) 60 % (42-75); PLATELET COUNT 233 x10^3/uL (130-400); RED BLOOD COUNT 3.86 x10^6/uL (3.82-5.3); RED CELL DISTRIBUTION WIDTH 18.3 % (9.6-15.2)
[2019-05-30 07:00] VITALS: BP 124/78
[2019-05-30] MEDS: DULOXETINE 30 MG CAPSULE.DR PO SCH (08:13)
[2019-05-30] MEDS: PANTOPRAZOLE 40MG TABLET PO SCH (08:13)
[2019-05-30] MEDS: MEMANTINE 5MG TABLET PO SCH ×2 (08:14→21:28)
[2019-05-30] MEDS: METOPROLOL TARTRATE 100 MG TAB PO SCH ×2 (08:14→21:28)
[2019-05-30] MEDS: LEVOTHYROXINE 25 MCG TABLET PO SCH (08:14)
[2019-05-30] MEDS: BUSPIRONE 5 MG TABLET PO SCH ×2 (08:14→21:28)
[2019-05-30] MEDS: HYDROcodone/APAP 10/325 MG TABLET PO PRN ×2 (08:14→16:01)
[2019-05-30] MEDS: GABAPENTIN 400 MG CAPSULE PO SCH ×3 (08:14→21:28)
[2019-05-30] MEDS ORDERED: FUROSEMIDE 20 MG TABLET PO SCH (09:00)
[2019-05-30] MEDS: HEPARIN 5,000 UNITS/ML, 1ML SQ SCH ×2 (09:16→16:02)
[2019-05-30] MEDS: ASPIRIN 81 MG TABLET CHEW PO SCH (11:58)
[2019-05-30 14:30] VITALS: BP 108/66
[2019-05-30] MEDS: FUROSEMIDE 20 MG/2 ML IV SCH (16:02)
[2019-05-30] MEDS ORDERED: FUROSEMIDE 20 MG/2 ML IV SCH (17:00)
[2019-05-30 19:53] VITALS: BP 137/81
[2019-05-30] MEDS: ATORVASTATIN 20 MG TABLET PO SCH (21:28)
[2019-05-30] MEDS: AMITRIPTYLINE 50 MG TABLET PO SCH (21:28)
[2019-05-30] MEDS: TIZANIDINE 2MG TABLET PO SCH (21:28)
[2019-05-31] MEDS: TRAZODONE 50MG TABLET PO PRN (00:20)
[2019-05-31] MEDS: HEPARIN 5,000 UNITS/ML, 1ML SQ SCH ×3 (00:20→16:25)
[2019-05-31 00:25] VITALS: BP 111/60
[2019-05-31 05:51] LABS: CALCIUM 8.9 mg/dL (8.5-10.1); CHLORIDE 107 mmol/L (98-107)
[2019-05-31 06:05] LABS: ALANINE AMINOTRANSFERASE 20 U/L (12-78); ALBUMIN 3.2 g/dL (3.4-5.0); ALKALINE PHOSPHATASE 115 U/L (45-117); ANION GAP 6 mmol/L (5-15); BILIRUBIN,TOTAL 0.3 mg/dL (0.2-1.0); CREATININE 0.77 mg/dL (0.55-1.02); TOTAL PROTEIN 6.1 g/dL (6.4-8.2)
[2019-05-31 06:50] VITALS: BP 127/79
[2019-05-31] MEDS: FUROSEMIDE 20 MG/2 ML IV SCH ×2 (07:28→16:26)
[2019-05-31] MEDS: BUSPIRONE 5 MG TABLET PO SCH ×2 (08:36→22:28)
[2019-05-31] MEDS: GABAPENTIN 400 MG CAPSULE PO SCH ×3 (08:37→22:28)
[2019-05-31] MEDS: DULOXETINE 30 MG CAPSULE.DR PO SCH (08:37)
[2019-05-31] MEDS: LEVOTHYROXINE 25 MCG TABLET PO SCH (08:37)
[2019-05-31] MEDS: PANTOPRAZOLE 40MG TABLET PO SCH (08:38)
[2019-05-31] MEDS: MEMANTINE 5MG TABLET PO SCH ×2 (08:38→22:28)
[2019-05-31] MEDS: ASPIRIN 81 MG TABLET CHEW PO SCH (08:38)
[2019-05-31] MEDS: METOPROLOL TARTRATE 100 MG TAB PO SCH ×2 (08:38→22:28)
[2019-05-31] MEDS: POLYETHYLENE GLYCOL 17 GM PACKET PO SCH (08:40)
[2019-05-31] MEDS: HYDROcodone/APAP 10/325 MG TABLET PO PRN ×3 (08:45→22:29)
[2019-05-31] MEDS ORDERED: IRON SUCROSE COMPLEX 100MG/5ML ONE (08:49)
[2019-05-31] MEDS: IRON SUCROSE COMPLEX 100MG/5ML IV SCH (08:50)
[2019-05-31] MEDS: ONDANSETRON 2MG/ML, 2ML IVPush PRN ×2 (11:20→21:29)
[2019-05-31 12:10] VITALS: BP 115/71
[2019-05-31] MEDS: POTASSIUM CHLORIDE 20 MEQ TAB.ER.PRT PO SCH (16:25)
[2019-05-31 18:26] VITALS: BP 103/63
[2019-05-31] MEDS: AMITRIPTYLINE 50 MG TABLET PO SCH (22:28)
[2019-05-31] MEDS: ATORVASTATIN 20 MG TABLET PO SCH (22:28)
[2019-05-31] MEDS: TIZANIDINE 2MG TABLET PO SCH (22:28)
[2019-06-01] MEDS: TRAZODONE 50MG TABLET PO PRN (00:15)
[2019-06-01] MEDS: HEPARIN 5,000 UNITS/ML, 1ML SQ SCH (01:42)
[2019-06-01 02:04] VITALS: BP 97/61
[2019-06-01 05:07] LABS: CHLORIDE 107 mmol/L (98-107)
[2019-06-01 05:18] LABS: ALANINE AMINOTRANSFERASE 19 U/L (12-78); ALBUMIN 3.3 g/dL (3.4-5.0); ALKALINE PHOSPHATASE 115 U/L (45-117); ANION GAP 5 mmol/L (5-15); BILIRUBIN,TOTAL 0.4 mg/dL (0.2-1.0); CALCIUM 8.8 mg/dL (8.5-10.1); CREATININE 0.81 mg/dL (0.55-1.02); TOTAL PROTEIN 6.2 g/dL (6.4-8.2)
[2019-06-01 08:12] VITALS: BP 125/75
[2019-06-01] MEDS: POTASSIUM CHLORIDE 20 MEQ TAB.ER.PRT PO SCH ×3 (08:15→09:05)
[2019-06-01] MEDS: FUROSEMIDE 20 MG/2 ML IV SCH (08:17)
[2019-06-01] MEDS: HYDROcodone/APAP 10/325 MG TABLET PO PRN ×3 (08:17→22:32)
[2019-06-01] MEDS: FUROSEMIDE 40 MG/4 ML IV SCH (09:00)
[2019-06-01] MEDS: POLYETHYLENE GLYCOL 17 GM PACKET PO SCH (09:00)
[2019-06-01] MEDS ORDERED: FUROSEMIDE 20 MG/2 ML IV SCH (09:00)
[2019-06-01] MEDS: LEVOTHYROXINE 25 MCG TABLET PO SCH (09:06)
[2019-06-01] MEDS: BUSPIRONE 5 MG TABLET PO SCH ×2 (09:06→22:32)
[2019-06-01] MEDS: IRON SUCROSE COMPLEX 100MG/5ML IV SCH (09:07)
[2019-06-01] MEDS: ASPIRIN 81 MG TABLET CHEW PO SCH (09:07)
[2019-06-01] MEDS: PANTOPRAZOLE 40MG TABLET PO SCH (09:07)
[2019-06-01] MEDS: MEMANTINE 5MG TABLET PO SCH ×2 (09:07→22:33)
[2019-06-01] MEDS: GABAPENTIN 400 MG CAPSULE PO SCH ×3 (09:07→22:33)
[2019-06-01] MEDS: METOPROLOL TARTRATE 100 MG TAB PO SCH ×2 (09:07→22:33)
[2019-06-01] MEDS: DULOXETINE 30 MG CAPSULE.DR PO SCH (09:10)
[2019-06-01] MEDS: ONDANSETRON 2MG/ML, 2ML IVPush PRN (10:35)
[2019-06-01 13:02] VITALS: BP 120/77
[2019-06-01 18:52] VITALS: BP 121/69
[2019-06-01] MEDS: AMITRIPTYLINE 50 MG TABLET PO SCH (22:32)
[2019-06-01] MEDS: ATORVASTATIN 20 MG TABLET PO SCH (22:33)
[2019-06-01] MEDS: TIZANIDINE 2MG TABLET PO SCH (22:33)
[2019-06-01] MEDS: FENTANYL 25 MCG PATCH TD SCH (22:34)
[2019-06-02] MEDS: TRAZODONE 50MG TABLET PO PRN ×2 (00:10→23:48)
[2019-06-02 01:24] VITALS: BP 97/58
[2019-06-02 05:43] LABS: CALCIUM 9.2 mg/dL (8.5-10.1); CHLORIDE 106 mmol/L (98-107)
[2019-06-02 05:49] LABS: ALANINE AMINOTRANSFERASE 23 U/L (12-78); ALBUMIN 3.6 g/dL (3.4-5.0); ALKALINE PHOSPHATASE 117 U/L (45-117); ANION GAP 6 mmol/L (5-15); BILIRUBIN,TOTAL 0.3 mg/dL (0.2-1.0); CREATININE 0.86 mg/dL (0.55-1.02); TOTAL PROTEIN 6.9 g/dL (6.4-8.2)
[2019-06-02 06:35] VITALS: BP 120/72
[2019-06-02] MEDS: FUROSEMIDE 40 MG/4 ML IV SCH (08:08)
[2019-06-02] MEDS: IRON SUCROSE COMPLEX 100MG/5ML IV SCH (08:08)
[2019-06-02] MEDS: LEVOTHYROXINE 25 MCG TABLET PO SCH (08:12)
[2019-06-02] MEDS: GABAPENTIN 400 MG CAPSULE PO SCH ×3 (08:12→21:51)
[2019-06-02] MEDS: MEMANTINE 5MG TABLET PO SCH ×2 (08:12→21:51)
[2019-06-02] MEDS: BUSPIRONE 5 MG TABLET PO SCH ×2 (08:12→21:52)
[2019-06-02] MEDS: HYDROcodone/APAP 10/325 MG TABLET PO PRN ×3 (08:12→23:49)
[2019-06-02] MEDS: METOPROLOL TARTRATE 100 MG TAB PO SCH ×2 (08:13→21:51)
[2019-06-02 11:59] VITALS: BP 124/79
[2019-06-02 12:10] VITALS: BP 107/69
[2019-06-02] MEDS ORDERED: FENTANYL PF 100 MCG/2ML ONE (13:29)
[2019-06-02] MEDS ORDERED: DEXAMETHASONE 4 MG/ML, 1ML ONE (13:58)
[2019-06-02] MEDS ORDERED: GLYCOPYRROLATE 0.2MG/1ML, 5ML ONE (13:58)
[2019-06-02] MEDS ORDERED: LIDOCAINE-MPF 2% ,5ML ONE (13:58)
[2019-06-02] MEDS ORDERED: EPHEDRINE 50 MG/ML, 1ML ONE (13:58)
[2019-06-02] MEDS ORDERED: CEFAZOLIN 1,000 MG ONE (13:58)
[2019-06-02] MEDS ORDERED: ROCURONIUM 10MG/ML,5ML ONE (13:58)
[2019-06-02] MEDS ORDERED: PROPOFOL 10 MG/ML, 20ML ONE (13:58)
[2019-06-02] MEDS ORDERED: NEOSTIGMINE 1 MG/ML, 10ML ONE (13:58)
[2019-06-02] MEDS ORDERED: ONDANSETRON 2MG/ML, 2ML ONE (13:58)
[2019-06-02] MEDS ORDERED: SUCCINYLCHOLINE 20 MG/ML, 10ML ONE (13:58)
[2019-06-02] MEDS ORDERED: HYDROmorphone 2 MG/ML, 1ML IVPush PRN (14:00)
[2019-06-02] MEDS ORDERED: ONDANSETRON 2MG/ML, 2ML IV PRN (14:00)
[2019-06-02] MEDS ORDERED: PROMETHAZINE 25 MG SUPP PR PRN (14:00)
[2019-06-02] MEDS ORDERED: OXYcodone 5 MG/5 ML ORAL.SOL UDC PO PRN (14:00)
[2019-06-02] MEDS ORDERED: ONDANSETRON ODT 8 MG PO PRN (14:00)
[2019-06-02] MEDS ORDERED: LORazepam 2 MG/ML, 1ML IVPush PRN (14:00)
[2019-06-02] MEDS ORDERED: PROMETHAZINE 25 MG/ML, 1ML IV PRN (14:00)
[2019-06-02] MEDS ORDERED: FENTANYL PF 100 MCG/2ML IV PRN (14:00)
[2019-06-02] MEDS ORDERED: ACETAMINOPHEN 325 MG TABLET PO PRN (14:00)
[2019-06-02] MEDS ORDERED: PROMETHAZINE 25 MG/ML, 1ML IM PRN (14:00)
[2019-06-02] MEDS ORDERED: LORazepam 2 MG/ML, 1ML ONE (14:22)
[2019-06-02 14:58] VITALS: BP 135/79
[2019-06-02] MEDS: POLYETHYLENE GLYCOL 17 GM PACKET PO SCH (15:09)
[2019-06-02] MEDS: ONDANSETRON 2MG/ML, 2ML IVPush PRN (15:10)
[2019-06-02] MEDS: PANTOPRAZOLE 40MG TABLET PO SCH (15:11)
[2019-06-02] MEDS: POTASSIUM CHLORIDE 20 MEQ TAB.ER.PRT PO SCH (15:11)
[2019-06-02] MEDS: ASPIRIN 81 MG TABLET CHEW PO SCH (15:11)
[2019-06-02] MEDS: DULOXETINE 30 MG CAPSULE.DR PO SCH (15:16)
[2019-06-02 18:57] VITALS: BP 130/71
[2019-06-02] MEDS: AMITRIPTYLINE 50 MG TABLET PO SCH (21:51)
[2019-06-02] MEDS: TIZANIDINE 2MG TABLET PO SCH (21:51)
[2019-06-02] MEDS: ATORVASTATIN 20 MG TABLET PO SCH (21:51)
[2019-06-03 01:15] VITALS: BP 100/64
[2019-06-03 05:43] LABS: ALANINE AMINOTRANSFERASE 25 U/L (12-78); ALBUMIN 3.4 g/dL (3.4-5.0); ANION GAP 6 mmol/L (5-15); CALCIUM 8.8 mg/dL (8.5-10.1); CHLORIDE 107 mmol/L (98-107); CREATININE 0.92 mg/dL (0.55-1.02)
[2019-06-03 05:45] LABS: ALKALINE PHOSPHATASE 112 U/L (45-117); BILIRUBIN,TOTAL 0.3 mg/dL (0.2-1.0); TOTAL PROTEIN 6.5 g/dL (6.4-8.2)
[2019-06-03] MEDS ORDERED: FUROSEMIDE 40 MG TABLET PO SCH ×2 (07:30→17:00)
[2019-06-03 07:49] VITALS: BP 123/73
[2019-06-03] MEDS: LEVOTHYROXINE 25 MCG TABLET PO SCH (07:50)
[2019-06-03] MEDS: HYDROcodone/APAP 10/325 MG TABLET PO PRN (07:51)
[2019-06-03] MEDS: POLYETHYLENE GLYCOL 17 GM PACKET PO SCH (09:00)
[2019-06-03] MEDS ORDERED: FERROUS SULFATE 325 MG TABLET PO SCH (09:00)
[2019-06-03] MEDS: BUSPIRONE 5 MG TABLET PO SCH (09:27)
[2019-06-03] MEDS: MEMANTINE 5MG TABLET PO SCH (09:27)
[2019-06-03] MEDS: GABAPENTIN 400 MG CAPSULE PO SCH (09:27)
[2019-06-03] MEDS: PANTOPRAZOLE 40MG TABLET PO SCH (09:28)
[2019-06-03] MEDS: POTASSIUM CHLORIDE 20 MEQ TAB.ER.PRT PO SCH (09:28)
[2019-06-03] MEDS: ASPIRIN 81 MG TABLET CHEW PO SCH (09:28)
[2019-06-03] MEDS: DULOXETINE 30 MG CAPSULE.DR PO SCH (09:28)
[2019-06-03] MEDS: METOPROLOL TARTRATE 100 MG TAB PO SCH (09:28)
[2019-06-03] MEDS ORDERED: FERR-51 PO (11:29)
[2019-06-03] MEDS ORDERED: POTA20TA6 PO (11:29)
[2019-06-03] MEDS ORDERED: FURO40TA6 PO (11:29)
[2019-06-03 13:25] VITALS: BP 107/69
== END 2019-06-03 16:11 | disposition home or self-care (01) | DRG 291 ==
LOC: ED 18:13 → EDIP 19:15 → 5SO 20:51
PROVIDERS: ADMIT Internal Medicine; ATTEND Internal Medicine
PROC: 0D738ZZ Dilation of Lower Esophagus, Via Natural or Artificial Opening Endoscopic (ICD-10-PCS; 2019-06-02)
PROC: 0DB48ZX Excision of Esophagogastric Junction, Via Natural or Artificial Opening Endoscopic, Diagnostic (ICD-10-PCS; 2019-06-02)
PROC: 0DB38ZX Excision of Lower Esophagus, Via Natural or Artificial Opening Endoscopic, Diagnostic (ICD-10-PCS; 2019-06-02)
PROC: 0DB68ZX Excision of Stomach, Via Natural or Artificial Opening Endoscopic, Diagnostic (ICD-10-PCS; 2019-06-02)
PROC: 0DB18ZX Excision of Upper Esophagus, Via Natural or Artificial Opening Endoscopic, Diagnostic (ICD-10-PCS; 2019-06-02)
PROC: 0DB28ZX Excision of Middle Esophagus, Via Natural or Artificial Opening Endoscopic, Diagnostic (ICD-10-PCS; 2019-06-02)
PROC: 0DB98ZX Excision of Duodenum, Via Natural or Artificial Opening Endoscopic, Diagnostic (ICD-10-PCS; 2019-06-02)
PROC: 0D748ZZ Dilation of Esophagogastric Junction, Via Natural or Artificial Opening Endoscopic (ICD-10-PCS; principal; 2019-06-02 13:30)
DX: I13.0 Hypertensive heart and chronic kidney disease with heart failure and stage 1 through stage 4 chronic kidney disease, or unspecified chronic kidney disease (principal); I50.33 Acute on chronic diastolic (congestive) heart failure; N17.9 Acute kidney failure, unspecified; J44.1 Chronic obstructive pulmonary disease with (acute) exacerbation; Q21.1 Atrial septal defect; E03.9 Hypothyroidism, unspecified; E11.22 Type 2 diabetes mellitus with diabetic chronic kidney disease; E66.9 Obesity, unspecified; F32.9 Major depressive disorder, single episode, unspecified; F43.10 Post-traumatic stress disorder, unspecified; G47.00 Insomnia, unspecified; G89.4 Chronic pain syndrome; I07.1 Rheumatic tricuspid insufficiency; I27.20 Pulmonary hypertension, unspecified; I35.8 Other nonrheumatic aortic valve disorders; K21.9 Gastro-esophageal reflux disease without esophagitis; K22.4 Dyskinesia of esophagus; K22.8 Other specified diseases of esophagus; M79.7 Fibromyalgia; N15.9 Renal tubulo-interstitial disease, unspecified; N18.9 Chronic kidney disease, unspecified; N20.0 Calculus of kidney; N30.10 Interstitial cystitis (chronic) without hematuria; Z79.899 Other long term (current) drug therapy; Z86.14 Personal history of Methicillin resistant Staphylococcus aureus infection; Z86.73 Personal history of transient ischemic attack (TIA), and cerebral infarction without residual deficits; Z90.710 Acquired absence of both cervix and uterus; Z87.442 Personal history of urinary calculi; Z93.6 Other artificial openings of urinary tract status; Z98.84 Bariatric surgery status; Z99.81 Dependence on supplemental oxygen; Z90.49 Acquired absence of other specified parts of digestive tract; Z88.0 Allergy status to penicillin; Z88.8 Allergy status to other drugs, medicaments and biological substances
CPT/HCPCS: 36415; 71045; 74220; 76770; 80048; 80053; 81003; 82728; 82962; 83036; 83540; 83550; 83605; 83735; 83880; 84443; 84484; 85025; 88305; 93005; 93306; 96374; 99285; G0378; J0690; J1100; J1644; J1756; J1940; J2405; J2704; J2710; J3010; C1725; J0330; J2060

== ENCOUNTER → 2019-08-11 | Outpatient (CLI) | payer MEDICARE, OTHER, MEDICAID ==
[~2019-08-11] MED LIST changes: +FERR-51 PO; +POTA20TA6 PO; +TIZA2TAB4 PO
[2019-08-11 17:32] LABS: BASOPHILS # (AUTO) 0.02 x10^3/uL (0-0.1); BASOPHILS % (AUTO) 0 % (0-1); EOSINOPHILS % (AUTO) 3 % (1-7); LYMPHOCYTES % (AUTO) 25 % (22-44); MD NO; MEAN CORPUSCULAR HEMOGLOBIN 27.5 pg (27.0-34.8); MEAN CORPUSCULAR HGB CONC 32.4 g/dL (32.4-35.8); MEAN CORPUSCULAR VOLUME 84.9 fL (80-100); MEAN PLATELET VOLUME 9.1 fL (7.4-10.4); MONOCYTES # (AUTO) 0.45 x10^3/uL (0.2-0.8); MONOCYTES % (AUTO) 6 % (2-9); NEUTROPHILS # (AUTO) 5.18 x10^3/uL (1.8-6.8); NEUTROPHILS % (AUTO) 67 % (42-75); PLATELET COUNT 316 x10^3/uL (130-400); RED BLOOD COUNT 4.91 x10^6/uL (3.82-5.3); RED CELL DISTRIBUTION WIDTH 20.2 % (9.6-15.2)
[2019-08-11 17:44] LABS: ALBUMIN 3.9 g/dL (3.4-5.0); CHLORIDE 108 mmol/L (98-107)
[2019-08-11 17:49] LABS: ALANINE AMINOTRANSFERASE 30 U/L (12-78); ALKALINE PHOSPHATASE 164 U/L (45-117); ANION GAP 2 mmol/L (5-15); BILIRUBIN,TOTAL 0.3 mg/dL (0.2-1.0); CALCIUM 9.5 mg/dL (8.5-10.1); CREATININE 1.01 mg/dL (0.55-1.02); TOTAL PROTEIN 7.6 g/dL (6.4-8.2)
== END | disposition home or self-care (01) ==
LOC: CFH 14:16
PROVIDERS: ATTEND Physician Assistant Medical
DX: I11.0 Hypertensive heart disease with heart failure (principal); I50.33 Acute on chronic diastolic (congestive) heart failure; I34.0 Nonrheumatic mitral (valve) insufficiency; J44.9 Chronic obstructive pulmonary disease, unspecified; D64.9 Anemia, unspecified
CPT/HCPCS: 36415; 80053; 85025

== ENCOUNTER 2019-09-11 01:00 | Inpatient (IN) | payer MEDICARE, OTHER, MEDICAID ==
[~2019-09-11] VITALS: Ht 165.1 cm; Wt 94.0 kg
[~2019-09-11 01:00] MED LIST changes: -PANT40TA5 PO; +PANT40TA6 PO
--- NOTE | 2019-09-11 01:07 | NUR ---
CORE FINISHER: EKG DONE IN TRIAGE.
--- NOTE | 2019-09-11 01:25 | NUR ---
THIS IS A 69Y F THAT COMES IN TONIGHT FOR SOB W/NAUSEA. PT STS SHE WAS SEEN BY TELEMED TODAY AND INSTRUCTED TO COME TO THE ER. PT DENIES SICK CONTACTS, FEVERS, CHILLS. PT HAS HX OF CKD, CHF AND ASTHMA. PT CONNECTED TO ALL MONITORING VSS.
--- NOTE | 2019-09-11 01:27 | NUR ---
law firm partner student at bedside for assessment
[2019-09-11] MEDS ORDERED: ONDANSETRON 2MG/ML, 2ML IVPush ONE (02:00)
[2019-09-11] MEDS ORDERED: SODIUM CHLORIDE FLUSH 10ML SYR IVF ONE (02:00)
[2019-09-11] MEDS ORDERED: ONDANSETRON 2MG/ML, 2ML ONE ×2 (02:15→02:30)
[2019-09-11 02:49] LABS: BASOPHILS # (AUTO) 0.06 x10^3/uL (0-0.1); BASOPHILS % (AUTO) 1 % (0-1); EOSINOPHILS # (AUTO) 0.24 x10^3/uL (0-0.4); EOSINOPHILS % (AUTO) 4 % (1-7); LYMPHOCYTES # (AUTO) 1.79 x10^3/uL (1-3.4); LYMPHOCYTES % (AUTO) 27 % (22-44); MD NO; MEAN CORPUSCULAR HEMOGLOBIN 27.4 pg (27.0-34.8); MEAN CORPUSCULAR HGB CONC 32.2 g/dL (32.4-35.8); MEAN PLATELET VOLUME 8.2 fL (7.4-10.4); MONOCYTES # (AUTO) 0.63 x10^3/uL (0.2-0.8); MONOCYTES % (AUTO) 9 % (2-9); NEUTROPHILS # (AUTO) 4.05 x10^3/uL (1.8-6.8); NEUTROPHILS % (AUTO) 60 % (42-75); PLATELET COUNT 258 x10^3/uL (130-400); RED BLOOD COUNT 4.07 x10^6/uL (3.82-5.3)
--- NOTE | 2019-09-11 02:51 | NUR ---
URINE SENT TO LAB
[2019-09-11 02:57] LABS: MICROSCOPIC NOT IND
[2019-09-11 02:59] LABS: ALANINE AMINOTRANSFERASE 26 U/L (12-78); ALBUMIN 3.1 g/dL (3.4-5.0); ANION GAP 8 mmol/L (5-15); CHLORIDE 107 mmol/L (98-107); CREATININE 0.85 mg/dL (0.55-1.02)
[2019-09-11 03:03] LABS: ALKALINE PHOSPHATASE 122 U/L (45-117); BILIRUBIN,TOTAL 0.2 mg/dL (0.2-1.0); TOTAL PROTEIN 6.7 g/dL (6.4-8.2); TROPONIN I < 0.015 ng/mL (0.000-0.045)
--- NOTE | 2019-09-11 03:07 | NUR ---
PT IN CT AT THIS TIME
[2019-09-11] MEDS ORDERED: OMNIPAQUE 350 MG/ML, 100ML BOTTLE ONE (03:15)
--- NOTE | 2019-09-11 03:16 | NUR ---
PT BACK FROM CT
--- NOTE | 2019-09-11 03:41 | NUR ---
PT RESTING ON GURNEY NO NEEDS AT THIS TIME, TOLERATED CT WELL NO NEEDS AT THIS TIME
[2019-09-11 05:59] VITALS: BP 136/54
[2019-09-11] MEDS ORDERED: hydrALAzine 20 MG/ML, 1ML IVPush PRN (06:00)
[2019-09-11] MEDS ORDERED: LIDODERM 5% PATCH TD PRN (06:00)
[2019-09-11] MEDS ORDERED: ALBUTEROL HFA 90 MCG/SPRAY INH PRN ×2 (06:00→12:00)
[2019-09-11] MEDS ORDERED: PROMETHAZINE 25 MG/ML, 1ML IM PRN (06:00)
[2019-09-11] MEDS: morphine SULFATE 10 MG/ML, 1ML IVPush PRN ×3 (06:17→16:42)
[2019-09-11] MEDS: FUROSEMIDE 20 MG TABLET PO SCH ×2 (07:30→16:51)
[2019-09-11 07:36] VITALS: BP 134/80
[2019-09-11] MEDS ORDERED: LIDOCAINE GEL 2%, 5ML TP ONE (08:30)
[2019-09-11] MEDS ORDERED: MORPHINE SULFATE 4 MG/ML, 1ML IVPush ONE (08:30)
[2019-09-11] MEDS: ONDANSETRON 2MG/ML, 2ML IVPush PRN (09:41)
[2019-09-11] MEDS: ERYTHROMYCIN 500 MG in SODIUM CHLORIDE 0.9% 100 ML IV SCH ×2 (10:46→18:38)
[2019-09-11] MEDS ORDERED: POTA10CA PO (12:07)
[2019-09-11] MEDS ORDERED: FLUT50DI NAS (12:07)
[2019-09-11] MEDS ORDERED: FURO-93 PO (12:07)
[2019-09-11] MEDS ORDERED: DOCU-131 PO (12:07)
[2019-09-11] MEDS ORDERED: RIZA10TA34 PO (12:07)
[2019-09-11] MEDS ORDERED: ONDA4TAB7 PO (12:07)
[2019-09-11 13:46] VITALS: BP 143/77
[2019-09-11] MEDS: FENTANYL 25 MCG PATCH TD SCH (14:45)
[2019-09-11] MEDS: ENOXAPARIN 40 MG/0.4 ML SQ SCH (14:46)
[2019-09-11] MEDS: LEVOTHYROXINE 25 MCG TABLET PO SCH (16:50)
[2019-09-11] MEDS: HYDROcodone/APAP 10/325 MG TABLET PO PRN (16:51)
[2019-09-11] MEDS ORDERED: FLUTICASONE NASAL SPRAY 16GM NAS SCH (17:00)
[2019-09-11 21:00] VITALS: BP 126/77
[2019-09-11] MEDS: BUSPIRONE 10 MG TABLET PO SCH (21:02)
[2019-09-11] MEDS: AMITRIPTYLINE 75 MG TABLET PO SCH (21:03)
[2019-09-11] MEDS: METOPROLOL TARTRATE 100 MG TAB PO SCH (21:04)
[2019-09-11] MEDS: POLYETHYLENE GLYCOL 17 GM PACKET PO SCH (21:04)
[2019-09-11] MEDS: GABAPENTIN 400 MG CAPSULE PO SCH (21:05)
[2019-09-11] MEDS: TIZANIDINE 2MG TABLET PO SCH (21:05)
[2019-09-11] MEDS: MEMANTINE 5MG TABLET PO SCH (21:07)
[2019-09-12] MEDS: ERYTHROMYCIN 500 MG in SODIUM CHLORIDE 0.9% 100 ML IV SCH ×5 (00:28→18:03)
[2019-09-12 02:58] VITALS: BP 118/77
[2019-09-12] MEDS: HYDROcodone/APAP 10/325 MG TABLET PO PRN ×2 (05:38→22:02)
[2019-09-12 05:55] LABS: ANION GAP 4 mmol/L (5-15); CALCIUM 8.6 mg/dL (8.5-10.1); CHLORIDE 109 mmol/L (98-107); CREATININE 0.92 mg/dL (0.55-1.02)
[2019-09-12 05:59] LABS: BASOPHILS # (AUTO) 0.03 x10^3/uL (0-0.1); BASOPHILS % (AUTO) 1 % (0-1); EOSINOPHILS % (AUTO) 5 % (1-7); LYMPHOCYTES # (AUTO) 1.19 x10^3/uL (1-3.4); LYMPHOCYTES % (AUTO) 30 % (22-44); MD NO; MEAN CORPUSCULAR HEMOGLOBIN 27.6 pg (27.0-34.8); MEAN CORPUSCULAR HGB CONC 32.3 g/dL (32.4-35.8); MEAN PLATELET VOLUME 7.6 fL (7.4-10.4); MONOCYTES # (AUTO) 0.42 x10^3/uL (0.2-0.8); MONOCYTES % (AUTO) 10 % (2-9); NEUTROPHILS # (AUTO) 2.18 x10^3/uL (1.8-6.8); NEUTROPHILS % (AUTO) 54 % (42-75); PLATELET COUNT 224 x10^3/uL (130-400); RED BLOOD COUNT 3.85 x10^6/uL (3.82-5.3)
[2019-09-12 07:46] VITALS: BP 108/66
[2019-09-12] MEDS: POLYETHYLENE GLYCOL 17 GM PACKET PO SCH ×3 (08:16→19:54)
[2019-09-12] MEDS: BUSPIRONE 10 MG TABLET PO SCH ×3 (08:16→19:54)
[2019-09-12] MEDS: METOPROLOL TARTRATE 100 MG TAB PO SCH ×2 (08:17→19:55)
[2019-09-12] MEDS: FUROSEMIDE 20 MG TABLET PO SCH ×2 (08:17→16:03)
[2019-09-12] MEDS: MEMANTINE 5MG TABLET PO SCH ×2 (08:17→19:54)
[2019-09-12] MEDS: PANTOPRAZOLE 40MG TABLET PO SCH (08:17)
[2019-09-12] MEDS: LEVOTHYROXINE 25 MCG TABLET PO SCH ×2 (08:17→16:03)
[2019-09-12] MEDS: DULOXETINE 30 MG CAPSULE.DR PO SCH (08:17)
[2019-09-12] MEDS: GABAPENTIN 400 MG CAPSULE PO SCH ×3 (08:18→19:55)
[2019-09-12] MEDS: ENOXAPARIN 40 MG/0.4 ML SQ SCH (14:03)
[2019-09-12 14:24] VITALS: BP 119/73
[2019-09-12] MEDS: AMITRIPTYLINE 75 MG TABLET PO SCH (19:54)
[2019-09-12] MEDS: TIZANIDINE 2MG TABLET PO SCH (19:54)
[2019-09-12 19:58] VITALS: BP 114/70
[2019-09-13] MEDS: ERYTHROMYCIN 500 MG in SODIUM CHLORIDE 0.9% 100 ML IV SCH ×4 (01:48→22:52)
[2019-09-13 03:04] VITALS: BP 115/73
[2019-09-13 04:12] LABS: BASOPHILS # (AUTO) 0.04 x10^3/uL (0-0.1); BASOPHILS % (AUTO) 1 % (0-1); EOSINOPHILS # (AUTO) 0.29 x10^3/uL (0-0.4); EOSINOPHILS % (AUTO) 5 % (1-7); LYMPHOCYTES # (AUTO) 1.54 x10^3/uL (1-3.4); LYMPHOCYTES % (AUTO) 24 % (22-44); MD NO; MEAN CORPUSCULAR HEMOGLOBIN 27.7 pg (27.0-34.8); MEAN CORPUSCULAR HGB CONC 32.2 g/dL (32.4-35.8); MEAN PLATELET VOLUME 7.8 fL (7.4-10.4); MONOCYTES # (AUTO) 0.61 x10^3/uL (0.2-0.8); MONOCYTES % (AUTO) 10 % (2-9); NEUTROPHILS # (AUTO) 4.01 x10^3/uL (1.8-6.8); NEUTROPHILS % (AUTO) 62 % (42-75); PLATELET COUNT 262 x10^3/uL (130-400); RED BLOOD COUNT 4.19 x10^6/uL (3.82-5.3); RED CELL DISTRIBUTION WIDTH 15.6 % (9.6-15.2)
[2019-09-13 04:15] LABS: ANION GAP 4 mmol/L (5-15); CHLORIDE 104 mmol/L (98-107); CREATININE 0.94 mg/dL (0.55-1.02)
[2019-09-13] MEDS: METOPROLOL TARTRATE 100 MG TAB PO SCH ×2 (08:40→22:49)
[2019-09-13] MEDS: BUSPIRONE 10 MG TABLET PO SCH ×3 (08:41→22:51)
[2019-09-13] MEDS: DULOXETINE 30 MG CAPSULE.DR PO SCH (08:41)
[2019-09-13] MEDS: MEMANTINE 5MG TABLET PO SCH ×2 (08:42→22:51)
[2019-09-13] MEDS: GABAPENTIN 400 MG CAPSULE PO SCH ×3 (08:42→22:51)
[2019-09-13] MEDS: LEVOTHYROXINE 25 MCG TABLET PO SCH (08:42)
[2019-09-13] MEDS: PANTOPRAZOLE 40MG TABLET PO SCH (08:42)
[2019-09-13] MEDS: FUROSEMIDE 20 MG TABLET PO SCH ×2 (08:43→16:13)
[2019-09-13] MEDS: POLYETHYLENE GLYCOL 17 GM PACKET PO SCH ×3 (08:43→22:51)
[2019-09-13 08:49] VITALS: BP 139/84
[2019-09-13] MEDS: HYDROcodone/APAP 10/325 MG TABLET PO PRN ×2 (09:52→22:50)
[2019-09-13 13:23] VITALS: BP 114/58
[2019-09-13] MEDS: ENOXAPARIN 40 MG/0.4 ML SQ SCH (15:18)
[2019-09-13] MEDS: ONDANSETRON 2MG/ML, 2ML IVPush PRN ×2 (15:18→22:49)
[2019-09-13] MEDS ORDERED: ACETAMINOPHEN 325 MG TABLET PO PRN (16:00)
[2019-09-13 19:38] VITALS: BP 121/80
[2019-09-13] MEDS: TIZANIDINE 2MG TABLET PO SCH (22:50)
[2019-09-13] MEDS: AMITRIPTYLINE 75 MG TABLET PO SCH (22:50)
[2019-09-14 01:30] VITALS: BP 112/73
[2019-09-14] MEDS: ERYTHROMYCIN 500 MG in SODIUM CHLORIDE 0.9% 100 ML IV SCH ×3 (05:03→16:33)
[2019-09-14 07:35] VITALS: BP 116/76
[2019-09-14 08:00] LABS: BASOPHILS # (AUTO) 0.02 x10^3/uL (0-0.1); BASOPHILS % (AUTO) 0 % (0-1); EOSINOPHILS # (AUTO) 0.17 x10^3/uL (0-0.4); EOSINOPHILS % (AUTO) 3 % (1-7); LYMPHOCYTES # (AUTO) 1.38 x10^3/uL (1-3.4); LYMPHOCYTES % (AUTO) 28 % (22-44); MD NO; MEAN CORPUSCULAR HEMOGLOBIN 27.3 pg (27.0-34.8); MEAN CORPUSCULAR HGB CONC 31.5 g/dL (32.4-35.8); MEAN PLATELET VOLUME 7.6 fL (7.4-10.4); MONOCYTES # (AUTO) 0.53 x10^3/uL (0.2-0.8); MONOCYTES % (AUTO) 11 % (2-9); NEUTROPHILS # (AUTO) 2.86 x10^3/uL (1.8-6.8); NEUTROPHILS % (AUTO) 58 % (42-75); PLATELET COUNT 265 x10^3/uL (130-400); RED BLOOD COUNT 4.19 x10^6/uL (3.82-5.3); RED CELL DISTRIBUTION WIDTH 15.2 % (9.6-15.2)
[2019-09-14 08:06] LABS: ALBUMIN 3.2 g/dL (3.4-5.0); ANION GAP 4 mmol/L (5-15); CALCIUM 8.7 mg/dL (8.5-10.1); CHLORIDE 104 mmol/L (98-107)
[2019-09-14 08:10] LABS: ALANINE AMINOTRANSFERASE 21 U/L (12-78); ALKALINE PHOSPHATASE 144 U/L (45-117); BILIRUBIN,TOTAL 0.4 mg/dL (0.2-1.0); CREATININE 0.94 mg/dL (0.55-1.02); TOTAL PROTEIN 6.3 g/dL (6.4-8.2)
[2019-09-14] MEDS: METOPROLOL TARTRATE 100 MG TAB PO SCH (08:31)
[2019-09-14] MEDS: PANTOPRAZOLE 40MG TABLET PO SCH (08:31)
[2019-09-14] MEDS: MEMANTINE 5MG TABLET PO SCH (08:31)
[2019-09-14] MEDS: GABAPENTIN 400 MG CAPSULE PO SCH ×2 (08:31→16:32)
[2019-09-14] MEDS: LEVOTHYROXINE 25 MCG TABLET PO SCH (08:31)
[2019-09-14] MEDS: DULOXETINE 30 MG CAPSULE.DR PO SCH (08:32)
[2019-09-14] MEDS: BUSPIRONE 10 MG TABLET PO SCH ×2 (08:32→16:33)
[2019-09-14] MEDS: POLYETHYLENE GLYCOL 17 GM PACKET PO SCH ×2 (08:32→16:33)
[2019-09-14] MEDS: FUROSEMIDE 20 MG TABLET PO SCH ×2 (08:32→16:33)
[2019-09-14] MEDS: HYDROcodone/APAP 10/325 MG TABLET PO PRN (12:20)
[2019-09-14] MEDS: FENTANYL 25 MCG PATCH TD SCH (12:20)
[2019-09-14 13:30] VITALS: BP 123/80
[2019-09-14] MEDS ORDERED: DOCU-131 PO (14:36)
[2019-09-14] MEDS: ENOXAPARIN 40 MG/0.4 ML SQ SCH (14:56)
[2019-09-14 17:30] VITALS: BP 125/76
== END 2019-09-14 18:01 | disposition home or self-care (01) | DRG 388 ==
LOC: ED 01:48 → EDIP 04:21 → 4NE 05:41
PROVIDERS: ADMIT Family Medicine; ATTEND Internal Medicine
PROC: 0T9B70Z Drainage of Bladder with Drainage Device, Via Natural or Artificial Opening (ICD-10-PCS; principal; 2019-09-11)
DX: K56.600 Partial intestinal obstruction, unspecified as to cause (principal); I50.33 Acute on chronic diastolic (congestive) heart failure; J96.10 Chronic respiratory failure, unspecified whether with hypoxia or hypercapnia; I13.0 Hypertensive heart and chronic kidney disease with heart failure and stage 1 through stage 4 chronic kidney disease, or unspecified chronic kidney disease; K86.1 Other chronic pancreatitis; Q21.1 Atrial septal defect; E03.9 Hypothyroidism, unspecified; E11.22 Type 2 diabetes mellitus with diabetic chronic kidney disease; G89.29 Other chronic pain; I27.20 Pulmonary hypertension, unspecified; J44.9 Chronic obstructive pulmonary disease, unspecified; N18.9 Chronic kidney disease, unspecified; K21.9 Gastro-esophageal reflux disease without esophagitis; E66.01 Morbid (severe) obesity due to excess calories; N20.0 Calculus of kidney; N30.10 Interstitial cystitis (chronic) without hematuria; Z79.891 Long term (current) use of opiate analgesic; Z86.73 Personal history of transient ischemic attack (TIA), and cerebral infarction without residual deficits; Z87.440 Personal history of urinary (tract) infections; Z87.442 Personal history of urinary calculi; Z88.8 Allergy status to other drugs, medicaments and biological substances; Z90.710 Acquired absence of both cervix and uterus; Z98.84 Bariatric surgery status; Z99.81 Dependence on supplemental oxygen; Z68.34 Body mass index [BMI] 34.0-34.9, adult; D63.8 Anemia in other chronic diseases classified elsewhere; Z88.2 Allergy status to sulfonamides
CPT/HCPCS: 36415; 71045; 74177; 80048; 80053; 81003; 83690; 83735; 83880; 84484; 85025; 93005; 96374; 99285; G0378; J1364; J1650; J2405; Q9967; J2270

== ENCOUNTER → 2019-12-23 | Outpatient (CLI) | payer MEDICARE, OTHER, MEDICAID ==
[~2019-12-23] MED LIST changes: +ALPRazolam 1MG TAB ONE; +DOCU-131 PO; +FLUT50DI NAS; +FURO-93 PO; +GADOTERATE 10 MMOL/20 ML SYR ONE; +ONDA4TAB7 PO; +RIZA10TA34 PO
== END | disposition home or self-care (01) ==
LOC: CFH 15:02
PROVIDERS: ATTEND Registered Nurse
DX: G93.0 Cerebral cysts (principal); G43.101 Migraine with aura, not intractable, with status migrainosus; G31.89 Other specified degenerative diseases of nervous system
CPT/HCPCS: 70553; A9575

== ENCOUNTER 2020-07-05 10:59 | Emergency (ER) | payer MEDICARE, OTHER, MEDICAID ==
[~2020-07-05] VITALS: Ht 165.1 cm; Wt 94.0 kg
[~2020-07-05 10:59] MED LIST changes: -ALPRazolam 1MG TAB ONE; +CIPR250T27 PO; -CIPR500T3 PO; +CIPR500T4 PO; -DICY20TA3 PO; +DICY20TA4 PO; -GADOTERATE 10 MMOL/20 ML SYR ONE; -HYDR-3245 PO; +HYDR1TAB53 PO; +LISI10TA19 PO; -LISI10TA2 PO; -MECL12.581 PO; +MECL12.590 PO; +METH-640 PO; -METH750T2 PO; +ONDA4TAB13 SL; +TIZA-106 PO; -TIZA2TAB4 PO
--- NOTE | 2020-07-05 12:00 | NUR ---
PT ROOMED FROM LOBBY.
[2020-07-05 12:06] LABS: BASOPHILS % (AUTO) 0 % (0-1); EOSINOPHILS % (AUTO) 2 % (1-7); LYMPHOCYTES % (AUTO) 13 % (22-44); MD NO; MEAN CORPUSCULAR HEMOGLOBIN 26.9 pg (27.0-34.8); MEAN CORPUSCULAR HGB CONC 32.1 g/dL (32.4-35.8); MEAN PLATELET VOLUME 8.5 fL (7.4-10.4); MONOCYTES % (AUTO) 6 % (2-9); NEUTROPHILS % (AUTO) 79 % (42-75); PLATELET COUNT 346 x10^3/uL (130-400); RED BLOOD COUNT 4.82 x10^6/uL (3.82-5.3); RED CELL DISTRIBUTION WIDTH 15.5 % (9.6-15.2)
[2020-07-05 12:17] LABS: ALBUMIN 4.1 g/dL (3.4-5.0); ANION GAP 6 mmol/L (5-15); CALCIUM 9.1 mg/dL (8.5-10.1); CHLORIDE 109 mmol/L (98-107)
[2020-07-05 12:20] LABS: ALANINE AMINOTRANSFERASE 25 U/L (12-78); ALKALINE PHOSPHATASE 151 U/L (45-117); BILIRUBIN,TOTAL 0.3 mg/dL (0.2-1.0); CREATININE 1.17 mg/dL (0.55-1.02); TOTAL PROTEIN 7.8 g/dL (6.4-8.2)
[2020-07-05] MEDS ORDERED: ONDANSETRON 2MG/ML, 2ML IVPush ONE (12:30)
--- NOTE | 2020-07-05 12:33 | NUR ---
PT OFF UNIT FOR IMAGING.
[2020-07-05] MEDS ORDERED: ONDANSETRON 2MG/ML, 2ML ONE (12:36)
[2020-07-05] MEDS ORDERED: MORPHINE SULFATE 4 MG/ML, 1ML ONE (12:36)
[2020-07-05] MEDS: MORPHINE SULFATE 4 MG/ML, 1ML IVPush PRN ×2 (12:52→13:19)
--- NOTE | 2020-07-05 12:53 | NUR ---
PT MEDICATED PER APR. PT TRANSPORTED TO CT.
[2020-07-05] MEDS ORDERED: OMNIPAQUE 350 MG/ML, 100ML BOTTLE ONE (13:10)
[2020-07-05 13:55] LABS: MICROSCOPIC INDICATED
--- NOTE | 2020-07-05 14:14 | NUR ---
ENEMA PER ORDER.
--- NOTE | 2020-07-05 14:24 | NUR ---
PT UP TO [facility] FOR BM.
--- NOTE | 2020-07-05 14:51 | NUR ---
PT HAD LARGE AMOUNT OF STOOL AFTER ENEMA, PT REPORTS SHE FEELS A LOT BETTER.
[2020-07-05 15:42] VITALS: BP 138/73
== END 2020-07-05 15:44 | disposition home or self-care (01) ==
LOC: ED 12:02
DX: K59.00 Constipation, unspecified (principal); R11.2 Nausea with vomiting, unspecified; R10.30 Lower abdominal pain, unspecified; R94.31 Abnormal electrocardiogram [ECG] [EKG]
CPT/HCPCS: 36415; 74177; 80053; 81001; 83690; 85025; 87077; 87086; 87147; 93005; 96374; 96375; 99285; J2270; J2405; Q9967; 87186

== ENCOUNTER 2020-08-26 17:01 | Emergency (ER) | payer MEDICARE, OTHER, MEDICAID ==
[~2020-08-26] VITALS: Ht 165.1 cm; Wt 93.4 kg
[~2020-08-26 17:01] MED LIST changes: +CIPR500T87 PO
[2020-08-26] MEDS ORDERED: ONDANSETRON 2MG/ML, 2ML ONE (18:28)
[2020-08-26] MEDS ORDERED: KETOROLAC 30 MG/1 ML ONE (18:28)
[2020-08-26] MEDS ORDERED: KETOROLAC 30 MG/1 ML IVPush ONE (18:30)
[2020-08-26] MEDS ORDERED: ONDANSETRON 2MG/ML, 2ML IVPush ONE (18:30)
[2020-08-26] MEDS ORDERED: SODIUM CHLORIDE FLUSH 10ML SYR IVF ONE (18:30)
[2020-08-26 18:47] LABS: MICROSCOPIC INDICATED
[2020-08-26 18:55] LABS: BASOPHILS % (AUTO) 1 % (0-1); EOSINOPHILS % (AUTO) 2 % (1-7); LYMPHOCYTES % (AUTO) 18 % (22-44); MEAN CORPUSCULAR HEMOGLOBIN 26.3 pg (27.0-34.8); MEAN CORPUSCULAR HGB CONC 32.3 g/dL (32.4-35.8); MEAN PLATELET VOLUME 8.1 fL (7.4-10.4); MONOCYTES % (AUTO) 8 % (2-9); NEUTROPHILS % (AUTO) 72 % (42-75); PLATELET COUNT 266 x10^3/uL (130-400); RED BLOOD COUNT 4.29 x10^6/uL (3.82-5.3); RED CELL DISTRIBUTION WIDTH 16.1 % (9.6-15.2)
--- NOTE | 2020-08-26 19:04 | NUR ---
LATE ENTRY DUE TO PT CARE. CC OF BILAT FLANK PAIN. 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 PT GOT ABX BUT DIDNT START UNTIL SATURDAY. NO IMPROVEMENT IN PAIN SO PT IS FOLLOW UP HERE AFTER ADVICE FROM HER HOME HEALTH NURSE. PT HAS RLQ UROSTOMY, UA COLLECTED AND SENT TO LAB.
[2020-08-26 19:09] LABS: ALANINE AMINOTRANSFERASE 23 U/L (12-78); ALBUMIN 3.9 g/dL (3.4-5.0); ANION GAP 3 mmol/L (5-15); CALCIUM 9.2 mg/dL (8.5-10.1); CHLORIDE 106 mmol/L (98-107); CREATININE 1.14 mg/dL (0.55-1.02)
[2020-08-26 19:11] LABS: ALKALINE PHOSPHATASE 132 U/L (45-117); BILIRUBIN,TOTAL 0.2 mg/dL (0.2-1.0); TOTAL PROTEIN 7.4 g/dL (6.4-8.2)
[2020-08-26 20:30] VITALS: BP 125/61
[2020-08-26] MEDS ORDERED: NITROFURANTOIN (MACROBID) 100 MG CAPSULE PO ONE (20:30)
== END 2020-08-26 21:09 | disposition home or self-care (01) ==
LOC: ED 19:41
DX: N39.0 Urinary tract infection, site not specified (principal); I13.0 Hypertensive heart and chronic kidney disease with heart failure and stage 1 through stage 4 chronic kidney disease, or unspecified chronic kidney disease; E11.22 Type 2 diabetes mellitus with diabetic chronic kidney disease; I50.9 Heart failure, unspecified; N18.9 Chronic kidney disease, unspecified; K21.9 Gastro-esophageal reflux disease without esophagitis; J44.9 Chronic obstructive pulmonary disease, unspecified; Z90.89 Acquired absence of other organs; Z86.73 Personal history of transient ischemic attack (TIA), and cerebral infarction without residual deficits; Z90.49 Acquired absence of other specified parts of digestive tract; Z90.710 Acquired absence of both cervix and uterus
CPT/HCPCS: 36415; 80053; 81001; 83605; 84145; 85025; 87040; 87077; 87086; 87106; 96374; 96375; 99284; J1885; J2405

== ENCOUNTER → 2020-09-06 | Outpatient (CLI) | payer MEDICARE, OTHER, MEDICAID | END | disposition home or self-care (01) | LOC: CVU 15:48 | PROVIDERS: ATTEND Internal Medicine Cardiovascular Disease | DX: I08.3 Combined rheumatic disorders of mitral, aortic and tricuspid valves (principal); R06.02 Shortness of breath | CPT/HCPCS: 93306 ==

== ENCOUNTER 2020-10-26 16:41 | Outpatient (CLI) | payer MEDICARE, OTHER, MEDICAID ==
[~2020-10-26 16:41] MED LIST changes: +POTA-143 PO; -POTA20TA6 PO
[2020-10-26 17:06] LABS: MEAN CORPUSCULAR HEMOGLOBIN 25.8 pg (27.0-34.8); MEAN CORPUSCULAR HGB CONC 31.7 g/dL (32.4-35.8); MEAN PLATELET VOLUME 7.9 fL (7.4-10.4); PLATELET COUNT 307 x10^3/uL (130-400); RED BLOOD COUNT 4.21 x10^6/uL (3.82-5.3); RED CELL DISTRIBUTION WIDTH 16.3 % (9.6-15.2)
[2020-10-26 17:14] LABS: CALCIUM 8.4 mg/dL (8.5-10.1); CHLORIDE 105 mmol/L (98-107); CHOLESTEROL, TOTAL 175 mg/dL (140-239)
[2020-10-26 17:28] LABS: ALANINE AMINOTRANSFERASE 25 U/L (12-78); ALBUMIN 3.3 g/dL (3.4-5.0); ALKALINE PHOSPHATASE 128 U/L (45-117); ANION GAP 5 mmol/L (5-15); BILIRUBIN,TOTAL 0.4 mg/dL (0.2-1.0); CHOL/HDL RATIO 4.6; CREATININE 0.89 mg/dL (0.55-1.02); HDL CHOL % 22 % (28-40); HDL CHOLESTEROL (DIRECT) 38 mg/dL (40-60); LDL CHOLESTEROL,CALCULATED 72 mg/dL (54-169); LDL/HDL RATIO 1.9 (0.5-3.0); TRIGLYCERIDES 327 mg/dL (50-200); VLDL CHOLESTEROL 65 mg/dL (0-25)
== END 2020-10-26 23:59 | disposition home or self-care (01) ==
LOC: LAB 16:41
PROVIDERS: ATTEND Nurse Practitioner Family
DX: E78.1 Pure hyperglyceridemia (principal); E03.9 Hypothyroidism, unspecified; D50.8 Other iron deficiency anemias; I10 Essential (primary) hypertension
CPT/HCPCS: 36415; 80053; 80061; 84443; 85027